=== PATIENT | male | born 1960 | race Caucasian/White ===

== ENCOUNTER 2018-12-03 08:50 | Emergency (ER) | payer OTHER ==
[~2018-12-03] VITALS: Ht 182.9 cm; Wt 113.4 kg
[2018-12-03] MEDS ORDERED: LISINOPRIL (10:14)
[2018-12-03 10:17] LABS: BILIRUBIN,URINE NEGATIVE (NEGATIVE); CLARITY,URINE CLEAR; COLOR,URINE YELLOW; GLUCOSE, URINE (UA) NEGATIVE (NEGATIVE); KETONES,URINE NEGATIVE (NEGATIVE); LEUKOCYTE ESTERASE ,URINE 1+ (NEGATIVE); NITRITE,URINE NEGATIVE (NEGATIVE); PH,URINE 5 (5-9); PROTEIN,URINE 2+ (NEGATIVE); UROBILINOGEN,URINE NORMAL (NORMAL)
--- NOTE | 2018-12-03 10:20 | NUR ---
NOTIFIED OF BUSY ER WITH POSSIBLE LONG WAIT.
[2018-12-03 10:39] LABS: BACTERIA,URINE LARGE /HPF; RBC,URINE TNTC /HPF; WBC,URINE 0-2 /HPF
[2018-12-03 10:40] LABS: YEAST,URINE LARGE /HPF
--- NOTE | 2018-12-03 10:41 | NUR ---
PT NOTIFIED THAT ARE 2ND PROVIDER IS HERE AND IT SHOULD NOT BE TOO MUCH LONGER.
[2018-12-03] MEDS ORDERED: KETOROLAC 30 MG/ML VIAL IVP ONE (11:00)
[2018-12-03] MEDS ORDERED: NS IV 1000 ML 1,000 ML IV SCH (11:00)
[2018-12-03] MEDS ORDERED: fentaNYL INJECTION 100 MCG/2 ML AMP IVP ONE (11:00)
--- NOTE | 2018-12-03 11:01 | ED Back Pain ---
General Chief Complaint: Back Problems Stated Complaint: LOWER BACK PAIN Nursing Triage Note: ARRIVED VIA AMB TO ROOM 10. COMPLAINS OF RIGHT LOWER BACK PAIN THAT WOKE HIM UP LAST NIGHT. HAS NOT TAKING ANYTHING FOR THE PAIN. Nursing Sepsis Screen: No Definite Risk Source of Information: Patient Exam Limitations: No Limitations History of Present Illness Date Seen by Provider: Dec 03, 2018 Time Seen by Provider: 10:40 Initial Comments 58-year-old male who presents to the emergency room with complaints of right lower back pain that woke him up last night. He reports that the pain radiates to his right groin and right testicle but denies testicle tenderness or swelling. He also has nausea but denies vomiting. Denies history of kidney stone. He does have right CVA tenderness. Denies using any [id number] medication for pain. Denies any injury to his back. Location: Other (right lower back pain) Timing/Duration: 4-6 Hours Associated Symptoms: No numbness in legs/feet; lower back pain (right-sided); No loss of bladder control, No loss of bowel control Allergies and Home Medications Allergies Coded Allergies: No Known Drug Allergies (Unverified , 12/03/18) Patient Home Medication List Home Medication List Reviewed: Yes Review of Systems Constitutional: no symptoms reported, see HPI Gastrointestinal: see HPI, nausea Genitourinary: see HPI, pain (right groin and right testicle pain and pressure. ) Musculoskeletal: see HPI, back pain All Other Systems Reviewed Negative Unless Noted: Yes Past Anrwbun-Xdqtey-Dpeuon Hx Past Med/Social Hx: Reviewed Nursing Past Med/Soc Hx Patient Social History Recent Foreign Travel: No Contact w/Someone Who Travel: No Recent Infectious Disease Expo: No Recent Hopitalizations: No Seasonal Allergies Seasonal Allergies: No Past Medical History Surgeries: Yes CABG Respiratory: No Cardiac: Yes Heart Attack, Hypertension Neurological: No Genitourinary: No Gastrointestinal: No Musculoskeletal: No Endocrine: Yes Diabetes, Non-Insulin dep Cancer: No Psychosocial: No Integumentary: No Family Medical History Reviewed Nursing Family Hx Physical Exam Vital Signs Vital Signs - First Documented 12/03/18 10:00 Temp 99.0 Pulse 61 Resp 16 B/P (MAP) 148/89 (108) Pulse Ox 100 O2 Delivery Room Air Capillary Refill : Less Than 3 Seconds Height, Weight, BMI Height: 6'" Weight: 250lbs. oz. 113.217323hr; BMI Method:Stated Progress/Results/Core Measures Results/Orders Lab Results Laboratory Tests Test 12/03/18 10:10 12/03/18 10:55 Range/Units Urine Color YELLOW Urine Clarity CLEAR Urine pH 5 5-9 Urine Specific Garita 1.020 1.016-1.022 Urine Protein 2+ H NEGATIVE Urine Glucose (UA) NEGATIVE NEGATIVE Urine Ketones NEGATIVE NEGATIVE Urine Nitrite NEGATIVE NEGATIVE Urine Bilirubin NEGATIVE NEGATIVE Urine Urobilinogen NORMAL NORMAL MG/DL Urine Leukocyte Esterase 1+ H NEGATIVE Urine RBC (Auto) 5+ H NEGATIVE Urine RBC TNTC H /HPF Urine WBC 0-2 /HPF Urine Crystals NONE /LPF Urine Bacteria LARGE H /HPF Urine Casts NONE /LPF Urine Mucus LARGE H /LPF Urine Yeast LARGE H /HPF Urine Culture Indicated YES White Blood Count 16.5 H 4.3-11.0 10^3/uL Red Blood Count 5.46 4.35-5.85 10^6/uL Hemoglobin 16.4 13.3-17.7 G/DL Hematocrit 47 40-54 % Mean Corpuscular Volume 86 80-99 FL Mean Corpuscular Hemoglobin 30 25-34 PG Mean Corpuscular Hemoglobin Concent 35 32-36 G/DL Red Cell Distribution Width 13.6 10.0-14.5 % Platelet Count 251 130-400 10^3/uL Mean Platelet Volume 10.0 7.4-10.4 FL Neutrophils (%) (Auto) 90 H 42-75 % Lymphocytes (%) (Auto) 5 L 12-44 % Monocytes (%) (Auto) 5 0-12 % Eosinophils (%) (Auto) 0 0-10 % Basophils (%) (Auto) 0 0-10 % Neutrophils # (Auto) 14.8 H 1.8-7.8 X 10^3 Lymphocytes # (Auto) 0.9 L 1.0-4.0 X 10^3 Monocytes # (Auto) 0.8 0.0-1.0 X 10^3 Eosinophils # (Auto) 0.0 0.0-0.3 10^3/uL Basophils # (Auto) 0.0 0.0-0.1 10^3/uL Neutrophils % (Manual) 93 % Lymphocytes % (Manual) 3 % Monocytes % (Manual) 3 % Band Neutrophils 1 % Hypersegmented Neutrophils SLIGHT Blood Morphology Comment NORMAL Sodium Level 139 135-145 MMOL/L Potassium Level 4.6 3.6-5.0 MMOL/L Chloride Level 107 98-107 MMOL/L Carbon Dioxide Level 23 21-32 MMOL/L Anion Gap 9 5-14 MMOL/L Blood Urea Nitrogen 15 7-18 MG/DL Creatinine 1.01 0.60-1.30 MG/DL Estimat Glomerular Filtration Rate > 60 BUN/Creatinine Ratio 15 Glucose Level 141 H 70-105 MG/DL Calcium Level 10.0 8.5-10.1 MG/DL Corrected Calcium 8.5-10.1 MG/DL Total Bilirubin 0.6 0.1-1.0 MG/DL Aspartate Amino Transf (AST/SGOT) 19 5-34 U/L Alanine Aminotransferase (ALT/SGPT) 28 0-55 U/L Alkaline Phosphatase 68 40-136 U/L Total Protein 7.8 6.4-8.2 GM/DL Albumin 4.6 H 3.2-4.5 GM/DL Amylase Level 42 25-125 U/L Lipase 21 8-78 U/L My Orders Orders - ALVINO DAMON Comprehensive Metabolic Panel (12/03/18 10:47) Lipase (12/03/18 10:47) Amylase (12/03/18 10:47) Saline Lock/Iv-Start (12/03/18 10:47) Cbc With Automated Diff (12/03/18 10:47) Ct Abd/Pelvis Wo(Kidney Stone) (12/03/18 10:47) Abdomen/Kub 1view (12/03/18 10:47) Ketorolac Injection (Toradol Injection) (12/03/18 11:00) Fentanyl Injection (Sublimaze Injection (12/03/18 11:00) Ns Iv 1000 Ml (Sodium Chloride 0.9%) (12/03/18 11:00) Manual Differential (12/03/18 10:55) Ondansetron Injection (Zofran Injectio (12/03/18 12:15) Medications Given in ED Current Medications Medications Dose Ordered Sig/Oniel Route Start Time Stop Time Status Last Admin Dose Admin Fentanyl Citrate 50 mcg ONCE ONCE IVP 12/03/18 11:00 12/03/18 11:01 DC 12/03/18 12:01 50 MCG Ketorolac Tromethamine 30 mg ONCE ONCE IVP 12/03/18 11:00 12/03/18 11:01 DC 12/03/18 12:02 30 MG Ondansetron HCl 4 mg ONCE ONCE IVP 12/03/18 12:15 12/03/18 12:16 DC 12/03/18 12:08 4 MG Vital Signs/I&O 12/03/18 10:00 Temp 99.0 Pulse 61 Resp 16 B/P (MAP) 148/89 (108) Pulse Ox 100 O2 Delivery Room Air Blood Pressure Mean: 108 Departure Impression Primary Impression: Kidney stone Disposition: HOME, SELF-CARE Condition: Stable/Unchanged Departure-Patient Inst. Decision time for Depature: 12:20 Referrals: STEPHANY BROWN MD Patient Instructions: Kidney Stones (DC) Add. Discharge Instructions: Take medications as directed. Follow-up with Dr. Brown for reevaluation and further treatment of your kidney stones. Call first thing Tuesday morning for an appointment time. Strain all of your urine and if you should pass the stone take it with you to your appointment. All discharge instructions reviewed with patient and/or family. Voiced understanding. Scripts Hydrocodone Bit/Acetaminophen (Hydrocodone/Acetaminophen 5/325mg Tablet) 1 Tab Tab 1-2 EACH PO Q6H PRN for PAIN-MODERATE MDD 10, #20 TAB Prov: ALVINO DAMON 12/03/18 Ondansetron HCl (Zofran) 4 Mg Tab 4 MG PO Q4H, #14 TAB Prov: ALVINO DAMON 12/03/18 Sulfamethoxazole/Trimethoprim (Bactrim Ds Tablet) 1 Each Tablet 1 EACH PO BID for 7 Days, #14 TAB Prov: ALVINO DAMON 12/03/18 ALVINO DAMON Dec 03, 2018 11:01
[2018-12-03 11:02] LABS: BASOPHILS % (AUTO) 0 % (0-10); EOSINOPHILS % (AUTO) 0 % (0-10); HEMATOCRIT 47 % (40-54); HEMOGLOBIN 16.4 G/DL (13.3-17.7); LYMPHOCYTES # (AUTO) 0.9 X 10^3 (1.0-4.0); LYMPHOCYTES % (AUTO) 5 % (12-44); MEAN CORPUSCULAR HEMOGLOBIN 30 PG (25-34); MEAN CORPUSCULAR HGB CONC 35 G/DL (32-36); MEAN CORPUSCULAR VOLUME 86 FL (80-99); MONOCYTES # (AUTO) 0.8 X 10^3 (0.0-1.0); MONOCYTES % (AUTO) 5 % (0-12); NEUTROPHILS # (AUTO) 14.8 X 10^3 (1.8-7.8); NEUTROPHILS % (AUTO) 90 % (42-75); PLATELET COUNT 251 10^3/uL (130-400); RED CELL DISTRIBUTION WIDTH 13.6 % (10.0-14.5); WHITE BLOOD COUNT 16.5 10^3/uL (4.3-11.0)
--- NOTE | 2018-12-03 11:17 | Diagnostic Imaging Report ---
PROCEDURE: CT urinary tract, rule out kidney stone. TECHNIQUE: Multiple contiguous axial images were obtained through the abdomen and pelvis without the use of intravenous contrast. INDICATION: Right flank pain for 6 hours. FINDINGS: The liver, gallbladder and bile ducts are normal. The spleen, pancreas and adrenals are normal. There are multiple bilateral 2-4 mm nonobstructing stones in the kidneys. There is a 3 mm calculus in the right mid ureter at the L4 level. There is mild pelvocaliectasis present on the right with perinephric stranding on the right. The distal right ureter is normal. The left ureter is normal. The bladder is normal. There is diverticulosis of the colon with no evidence of diverticulitis or other acute bowel abnormality. There is no free intraperitoneal air or fluid. There is no acute bony abnormality. IMPRESSION: There is a 3 mm calculus in the right mid ureter causing mild dilatation of the collecting system proximal to this. There are multiple bilateral nonobstructing stones present in the kidneys. There is diverticulosis of the colon. Dictated by: Dictated on workstation # [id number]
--- NOTE | 2018-12-03 11:21 | Diagnostic Imaging Report ---
INDICATION: Right flank pain for 6 hours FINDINGS: Supine views of the abdomen show a normal bowel gas pattern. There are bilateral renal calcifications present. No ureteral calcifications are evident on these views. The spine shows mild degenerative changes with no acute bony abnormality. IMPRESSION: There are bilateral renal calculi present. No acute abnormality is evident. Dictated by: Dictated on workstation # [id number]
[2018-12-03 11:22] LABS: ALANINE AMINOTRANSFERASE 28 U/L (0-55); ALBUMIN 4.6 GM/DL (3.2-4.5); ALKALINE PHOSPHATASE 68 U/L (40-136); AMYLASE 42 U/L (25-125); BILIRUBIN,TOTAL 0.6 MG/DL (0.1-1.0); BUN/CREATININE RATIO 15; CARBON DIOXIDE 23 MMOL/L (21-32); CHLORIDE 107 MMOL/L (98-107); CREATININE SERUM 1.01 MG/DL (0.60-1.30); GFR ESTIMATED > 60; GLUCOSE 141 MG/DL (70-105); LIPASE 21 U/L (8-78); POTASSIUM 4.6 MMOL/L (3.6-5.0); SODIUM 139 MMOL/L (135-145); TOTAL PROTEIN 7.8 GM/DL (6.4-8.2)
[2018-12-03 11:33] LABS: BAND NEUTROPHILS 1 %; HYPERSEGMENTED NEUT SLIGHT; LYMPHOCYTES % (MANUAL) 3 %; MONOCYTES % (MANUAL) 3 %; NEUTROPHILS % (MANUAL) 93 %
[2018-12-03 11:34] LABS: RBC MORPH NORMAL
--- NOTE | 2018-12-03 12:04 | NUR ---
NS BOLUS STARTED AT 1204 PER DOCTOR ORDER
[2018-12-03] MEDS ORDERED: ONDANSETRON 4 MG/2 ML (SDV) Z0FRAN IVP ONE (12:15)
[2018-12-03] MEDS ORDERED: ACHD5005 PO (12:24)
[2018-12-03] MEDS ORDERED: ONDN4T PO (12:24)
[2018-12-03] MEDS ORDERED: SULF1TAB35 PO (12:24)
--- NOTE | 2018-12-03 12:38 | NUR ---
D/C IV FLUIDS PER PROVIDER FOR DISCHARGE 500 ML INFUSED
[2018-12-03 12:39] VITALS: BP 132/74
== END 2018-12-03 12:39 | disposition home or self-care (01) ==
LOC: ER 08:53
DX: N20.0 Calculus of kidney (principal); I10 Essential (primary) hypertension; I25.2 Old myocardial infarction; E11.9 Type 2 diabetes mellitus without complications
CPT/HCPCS: 36415; 74018; 74176; 80053; 81000; 82150; 83690; 85007; 85027; 87088

== ENCOUNTER 2020-09-20 11:21 | Inpatient (IN) | payer OTHER ==
[~2020-09-20] VITALS: Ht 175 cm; Wt 118.2 kg
[~2020-09-20 11:21] MED LIST: ACHD5005 PO; LISINOPRIL; ONDN4T PO; SULF1TAB35 PO
--- NOTE | 2020-09-20 11:59 | ED Respiratory ---
General Chief Complaint: Respiratory Problems Stated Complaint: SOA;COUGH History of Present Illness Date Seen by Provider: Sep 20, 2020 Time Seen by Provider: 11:58 60-year-old male with a past medical history significant for hypertension, borderline diabetes presenting to the emergency department with a complaint of fever, fatigue, shortness of breath, cough. Patient has been at home living with a known positive COVID-19 patient. He states he has had 3 days of progressively worsening symptoms with difficulty breathing, and fatigue. He has noted a nonproductive cough. Shortness of breath is worsened with exertion. It does not worsen with lying flat.. He denies chest pain. He has had temperatures of 102 that have been responsive to Tylenol. He does not normally wear oxygen at baseline was found to have a new 3 L oxygen requirement. Patient denies alcohol use. He normally gets his care at the [facility]. He also noted new onset of lower extremity edema which is new for him. Allergies and Home Medications Allergies Coded Allergies: No Known Drug Allergies (Unverified , 12/03/18) Home Medications Hydrocodone Bit/Acetaminophen 1 Tab Tab, 1-2 EACH PO Q6H PRN for PAIN-MODERATE Prescribed by: ALVINO DAMON on 12/03/18 1224 Ondansetron HCl 4 Mg Tab, 4 MG PO Q4H Prescribed by: ALVINO DAMON on 12/03/18 1224 Sulfamethoxazole/Trimethoprim 1 Each Tablet, 1 EACH PO BID Prescribed by: ALVINO DAMON on 12/03/18 1224 Patient Home Medication List Home Medication List Reviewed: Yes Review of Systems Review of Systems Constitutional: no symptoms reported, see HPI, chills, diaphoresis, dizziness, fever, malaise, weakness, weight gain, weight loss, other EENTM: see HPI Respiratory: cough, dyspnea on exertion Cardiovascular: edema Genitourinary: see HPI Musculoskeletal: see HPI Skin: see HPI Psychiatric/Neurological: See HPI Hematologic/Lymphatic: See HPI All Other Systems Reviewed Negative Unless Noted: Yes Past Foubmzi-Tvyqan-Hrvtip Hx Patient Social History Recent Hopitalizations: No Seasonal Allergies Seasonal Allergies: No Past Medical History Surgeries: Yes CABG Respiratory: No Cardiac: Yes Heart Attack, Hypertension Neurological: No Genitourinary: No Gastrointestinal: No Musculoskeletal: No Endocrine: Yes Diabetes, Non-Insulin dep Cancer: No Psychosocial: No Integumentary: No Physical Exam Vital Signs - First Documented 09/20/20 09/20/20 11:35 12:23 Temp 36.4 Pulse 81 Resp 28 B/P (MAP) 113/66 (82) Pulse Ox 94 O2 Delivery Nasal Cannula O2 Flow Rate 2.00 Capillary Refill : Height: 6'" Weight: 250lbs. oz. 113.829443bv; BMI Method:Stated General Appearance: mild distress, moderate distress Neck: supple Respiratory: respiratory distress, crackles, other (Patient was tachypneic and had a new 3 L oxygen requirement via nasal cannula.) Cardiovascular: tachycardia, other (Bilateral pitting lower extremity edema. Regular rhythm.) Gastrointestinal: non tender, soft, no organomegaly Extremities: normal inspection Neurologic/Psychiatric: alert, normal mood/affect Skin: normal color, warm/dry Focused Exam Sepsis Stage: Sepsis Possible Source: Pulmonary Lactate Level 09/20/20 12:05: Lactic Acid Level 2.40*H 09/20/20 14:10: Lactic Acid Level 2.43*H Time of Focused Exam: 13:05 Respiratory: Crackles Cardiovascular: Regular Rate, Rhythm Skin: normal color Lactic Acid Level Laboratory Tests Test 09/20/20 12:05 09/20/20 14:10 Lactic Acid Level 2.40 MMOL/L (0.50-2.00) *H 2.43 MMOL/L (0.50-2.00) *H Within 3hrs of presentation: Admin fluids, Admin ABX, Blood cultures prior to ABX's, Lactate level Progress/Results/Core Measures Suspected Sepsis SIRS Temperature: Pulse: Respiratory Rate: Laboratory Tests 09/20/20 12:05: White Blood Count 20.3H Blood Pressure / Mean: 09/20/20 12:05: Lactic Acid Level 2.40*H 09/20/20 14:10: Lactic Acid Level 2.43*H Laboratory Tests 09/20/20 12:05: Creatinine 1.01, INR Comment 1.1, Platelet Count 461H, Total Bilirubin 0.4 Results/Orders Lab Results Laboratory Tests Test 09/20/20 12:05 09/20/20 12:15 09/20/20 14:10 Range/Units White Blood Count 20.3 H 4.3-11.0 10^3/uL Red Blood Count 4.64 4.35-5.85 10^6/uL Hemoglobin 13.3 13.3-17.7 G/DL Hematocrit 42 40-54 % Mean Corpuscular Volume 90 80-99 FL Mean Corpuscular Hemoglobin 29 25-34 PG Mean Corpuscular Hemoglobin Concent 32 32-36 G/DL Red Cell Distribution Width 14.6 H 10.0-14.5 % Platelet Count 461 H 130-400 10^3/uL Mean Platelet Volume 9.7 7.4-10.4 FL Immature Granulocyte % (Auto) 4 % Neutrophils (%) (Auto) 83 H 42-75 % Lymphocytes (%) (Auto) 6 L 12-44 % Monocytes (%) (Auto) 7 0-12 % Eosinophils (%) (Auto) 0 0-10 % Basophils (%) (Auto) 0 0-10 % Neutrophils # (Auto) 16.9 H 1.8-7.8 X 10^3 Lymphocytes # (Auto) 1.2 1.0-4.0 X 10^3 Monocytes # (Auto) 1.3 H 0.0-1.0 X 10^3 Eosinophils # (Auto) 0.0 0.0-0.3 10^3/uL Basophils # (Auto) 0.1 0.0-0.1 10^3/uL Immature Granulocyte # (Auto) 0.8 H 0.0-0.1 10^3/uL Neutrophils % (Manual) 73 % Lymphocytes % (Manual) 8 % Monocytes % (Manual) 10 % Eosinophils % (Manual) 0 % Basophils % (Manual) 0 % Metamyelocytes % 3 % Band Neutrophils 6 % Nucleated Red Blood Cells 1 Polychromasia MODERATE Prothrombin Time 14.4 12.2-14.7 SEC INR Comment 1.1 0.8-1.4 Activated Partial Thromboplast Time 26 24-35 SEC Sodium Level 132 L 135-145 MMOL/L Potassium Level 3.8 3.6-5.0 MMOL/L Chloride Level 91 L 98-107 MMOL/L Carbon Dioxide Level 28 21-32 MMOL/L Anion Gap 13 5-14 MMOL/L Blood Urea Nitrogen 22 H 7-18 MG/DL Creatinine 1.01 0.60-1.30 MG/DL Estimat Glomerular Filtration Rate > 60 BUN/Creatinine Ratio 22 Glucose Level 147 H 70-105 MG/DL Lactic Acid Level 2.40 *H 2.43 *H 0.50-2.00 MMOL/L Calcium Level 8.7 8.5-10.1 MG/DL Corrected Calcium 9.5 8.5-10.1 MG/DL Total Bilirubin 0.4 0.1-1.0 MG/DL Aspartate Amino Transf (AST/SGOT) 88 H 5-34 U/L Alanine Aminotransferase (ALT/SGPT) 134 H 0-55 U/L Alkaline Phosphatase 93 40-136 U/L Troponin I < 0.30 <0.30 NG/ML Pro-B-Type Natriuretic Peptide 6606.0 H <75.0 PG/ML Total Protein 7.3 6.4-8.2 GM/DL Albumin 3.0 L 3.2-4.5 GM/DL My Orders Orders - MARTHA BOYLE MD Cbc With Automated Diff (09/20/20 11:59) Comprehensive Metabolic Panel (09/20/20 11:59) Blood Culture (09/20/20 11:59) Urinalysis (09/20/20 11:59) Urine Culture (09/20/20 11:59) Protime With Inr (09/20/20 11:59) Partial Thromboplastin Time (09/20/20 11:59) Chest 1 View Ap/Pa Only (09/20/20 11:59) Ed Iv/Invasive Line Start (09/20/20 11:59) Ed Iv/Invasive Line Start (09/20/20 11:59) Vital Signs Adult Sepsis Patie Q15M (09/20/20 11:59) O2 (09/20/20 11:59) Remove Rings In Anticipation O (09/20/20 11:59) Lactic Acid Analyzer (09/20/20 11:59) Ns Iv 1000 Ml (Sodium Chloride 0.9%) (09/20/20 12:00) Vital Signs: Every 4 Hours (Or (09/20/20 11:59) Monitor-Rhythm Ecg Trace Only (09/20/20 11:59) Oxygen Delivery Set Up (09/20/20 11:59) Oxygen-Administer ,19 (09/20/20 11:59) Coronavirus Sars-Cov-2 So 2019 (09/20/20 11:59) Probnp Fs (09/20/20 11:59) Manual Differential (09/20/20 12:05) Ceftriaxone For Iv Use (Rocephin For I (09/20/20 13:00) Azithromycin Injection (Zithromax Inject (09/20/20 13:00) Troponin I Fs (09/20/20 12:57) Ekg Tracing (09/20/20 13:07) Medications Given in ED Current Medications Medications Dose Ordered Sig/Oniel Route Start Time Stop Time Status Last Admin Dose Admin Azithromycin 500 mg/Sodium Chloride 250 ml @ 250 mls/hr ONCE ONCE IV 09/20/20 13:00 09/20/20 13:59 DC 09/20/20 13:26 250 MLS/HR Ceftriaxone Sodium 1000 mg/ Sterile Water 10 ml @ 200 mls/hr ONCE ONCE IV 09/20/20 13:00 09/20/20 13:02 DC 09/20/20 13:25 200 MLS/HR Vital Signs/I&O 09/20/20 09/20/20 09/20/20 09/20/20 11:35 12:23 13:57 14:17 Temp 36.4 36.5 36.2 Pulse 81 100 94 Resp 28 18 16 B/P (MAP) 113/66 (82) 122/68 124/62 Pulse Ox 94 88 94 95 O2 Delivery Nasal Cannula Room Air Nasal Cannula Nasal Cannula O2 Flow Rate 2.00 2.00 2.00 Capillary Refill : Progress Note : Progress Note Patient's presentation is concerning for suspected COVID-19 infection given his close contact with a known positive. He had a new 3 L oxygen requirement and was slightly tachycardic in the low 100s upon arrival to the emergency department. His initial lactic acid was elevated at 2.4 and trended up to 2.43 after 1 L NS. He was also tachypneic. Blood cultures x2 were obtained. Chest x-ray revealed diffuse infiltrates. The patient was started on Rocephin and azithromycin. He did have lower extremity edema found on exam along with an elevated proBNP. No previous history of congestive heart failure, but patient only was to receive 1 L of normal saline with concerns for fluid overload in the setting of COVID-19 and possible underlying congestive heart failure despite clinical concern for sepsis. Remainder of his laboratory work revealed slightly elevated liver enzymes, normal troponin. Patient was agreeable with being admitted to [facility] in [facility] for further management of his respiratory failure with hypoxia likely secondary to suspected COVID-19 infection with possible underlying congestive heart failure.. I spoke with the on-call hospitalist Dr. Ladd who accepted the patient for further management. Patient remained stable in the emergency department on 3 L of oxygen while awaiting for transportation for inpatient admission. ECG Initial ECG Impression Date: Sep 20, 2020 Initial ECG Impression Time: 13:44 Comment EKG obtained on 09/20/2020 at 1317 significant for sinus rhythm rate of 97, CT interval of 143, normal axis, QTC of 531, no STEMI. Diagnostic Imaging Diagonstic Imaging: Xray Comments Date of Exam:09/20/20 CHEST 1 VIEW AP/PA ONLY INDICATION: Short of breath for two days. Sepsis. Portable chest shows cardiomegaly with mild vascular congestion. There are bilateral infiltrates consistent with pneumonia. There is no effusion or pneumothorax. There are changes of prior CABG. There is no acute bony abnormality. IMPRESSION: There is cardiomegaly. There are bilateral infiltrates. Recommend follow-up. Departure Communication (Admissions) Time/Spoke to Admitting Phy: 13:10 Julee Escobar accepted the patient for further management. Med/Surg Tely inpatient. Impression Primary Impression: Respiratory failure with hypoxia Qualified Codes: J96.01 - Acute respiratory failure with hypoxia Additional Impressions: Suspected COVID-19 virus infection Pneumonia Qualified Codes: J18.9 - Pneumonia, unspecified organism Sepsis Qualified Codes: A41.9 - Sepsis, unspecified organism; R65.20 - Severe sepsis without septic shock; J96.01 - Acute respiratory failure with hypoxia Fatigue Qualified Codes: R53.83 - Other fatigue Elevated liver enzymes Disposition: ADMITTED INPATIENT Condition: Stable Admissions Decision to Admit Reason: Admit from ER (General) Decision to Admit/Date: Sep 20, 2020 Time/Decision to Admit Time: 13:10 Departure-Patient Inst. Referrals: NO,LOCAL PHYSICIAN (PCP/Family) Primary Care Physician MARTHA BOYLE MD Sep 20, 2020 11:59
[2020-09-20] MEDS ORDERED: NS IV 1000 ML 1,000 ML IV SCH (12:00)
[2020-09-20 12:20] LABS: HEMATOCRIT 42 % (40-54); HEMOGLOBIN 13.3 G/DL (13.3-17.7); MEAN CORPUSCULAR HEMOGLOBIN 29 PG (25-34); MEAN CORPUSCULAR HGB CONC 32 G/DL (32-36); MEAN CORPUSCULAR VOLUME 90 FL (80-99); WHITE BLOOD COUNT 20.3 10^3/uL (4.3-11.0)
[2020-09-20 12:21] LABS: BASOPHILS # (AUTO) 0.1 10^3/uL (0.0-0.1); BASOPHILS % (AUTO) 0 % (0-10); EOSINOPHILS % (AUTO) 0 % (0-10); LYMPHOCYTES # (AUTO) 1.2 X 10^3 (1.0-4.0); LYMPHOCYTES % (AUTO) 6 % (12-44); MEAN PLATELET VOLUME 9.7 FL (7.4-10.4); MONOCYTES # (AUTO) 1.3 X 10^3 (0.0-1.0); MONOCYTES % (AUTO) 7 % (0-12); NEUTROPHILS # (AUTO) 16.9 X 10^3 (1.8-7.8); NEUTROPHILS % (AUTO) 83 % (42-75); PLATELET COUNT 461 10^3/uL (130-400)
[2020-09-20 12:31] LABS: INR 1.1 (0.8-1.4); PROTHROMBIN TIME PATIENT 14.4 SEC (12.2-14.7)
[2020-09-20 12:41] LABS: ALANINE AMINOTRANSFERASE 134 U/L (0-55); ALKALINE PHOSPHATASE 93 U/L (40-136); BILIRUBIN,TOTAL 0.4 MG/DL (0.1-1.0); BUN/CREATININE RATIO 22; CALCIUM 8.7 MG/DL (8.5-10.1); CARBON DIOXIDE 28 MMOL/L (21-32); CHLORIDE 91 MMOL/L (98-107); CREATININE SERUM 1.01 MG/DL (0.60-1.30); GFR ESTIMATED > 60; GLUCOSE 147 MG/DL (70-105); POTASSIUM 3.8 MMOL/L (3.6-5.0); SODIUM 132 MMOL/L (135-145); TOTAL PROTEIN 7.3 GM/DL (6.4-8.2)
--- NOTE | 2020-09-20 12:41 | Diagnostic Imaging Report ---
INDICATION: Short of breath for two days. Sepsis. Portable chest shows cardiomegaly with mild vascular congestion. There are bilateral infiltrates consistent with pneumonia. There is no effusion or pneumothorax. There are changes of prior CABG. There is no acute bony abnormality. IMPRESSION: There is cardiomegaly. There are bilateral infiltrates. Recommend follow-up. Dictated by: Dictated on workstation # [id number]
[2020-09-20] MEDS ORDERED: cefTRIAXone FOR IV USE 1,000 MG in WATER (STERILE) FOR INJECTION 10 ML IV ONE (13:00)
[2020-09-20] MEDS ORDERED: AZITHROMYCIN INJECTION 500 MG in NS (IVPB) 250 ML IV ONE (13:00)
[2020-09-20 13:11] LABS: BAND NEUTROPHILS 6 %; BASOPHILS % (MANUAL) 0 %; EOSINOPHILS % (MANUAL) 0 %; LYMPHOCYTES % (MANUAL) 8 %; METAMYELOCYTES % 3 %; MONOCYTES % (MANUAL) 10 %; NEUTROPHILS % (MANUAL) 73 %; NUCLEATED RED BLOOD CELLS 1; POLYCHROMASIA MODERATE
[2020-09-20 15:16] VITALS: BP 120/71
[2020-09-20] MEDS ORDERED: FUROSEMIDE 40 MG/4 ML INJ (LASIX) IVP ONE (15:45)
[2020-09-20] MEDS ORDERED: ONDANSETRON 4 MG/2 ML (SDV) Z0FRAN IV PRN (15:45)
[2020-09-20] MEDS ORDERED: guaiFENesin SYRUP 100 MG/5 ML 10 ML (ROBITUSSIN SF) PO PRN (15:45)
--- NOTE | 2020-09-20 15:53 | History & Physical-Hospitalist ---
History of Present Illness HPI/Chief Complaint Pt is a 60yoCM with a PMH of HTN and NIDDMII who presented to the ER due to shortness of breath. His girlfriend has COVID and they both developed symptoms about 1 week ago. He never got tested but assumed he had it as well. Over the past two or three days it had been worsening and he states when he arrived at the ER it was like he had "been bucking broncos." He states he's feeling better now than when he arrived to the ER. Despite this he was satting around 88% on 10lpm while I was at bedside. I instructed him to roll to his belly and prone while we get vapotherm. Sats improved to 92%. He denies any loss of taste or smell, nausea, vomiting, or diarrhea. He has had fevers up to 102. Source: patient Date Seen 09/20/20 Time Seen by a Provider: 15:47 Attending Physician Ina Jara MD PCP No,Local Physician Referring Physician Date of Admission Sep 20, 2020 at 15:00 Home Medications & Allergies Home Medications Reviewed patient Home Medication Reconciliation performed by pharmacy medication reconciliations document image technician and/or nursing. Patients Allergies have been reviewed. Allergies Allergies Coded Allergies No Known Drug Allergies (Unverified12/03/18) Past Sofqwme-Zbsygk-Owwdnu Hx Past Med/Social Hx: Reviewed Nursing Past Med/Soc Hx Patient Social History Alcohol Use: Denies Use Recreational Drug Use: No Smoking Status: Never a Smoker 2nd Hand Smoke Exposure: No Physical Abuse Screen: No Sexual Abuse: No Recent Foreign Travel: No Contact w/other who traveled: No Recent Hopitalizations: No Recent Infectious Disease Expo: No Seasonal Allergies Seasonal Allergies: No Past Medical History Surgeries: CABG Cardiac: Heart Attack, Hypertension Endocrine: Diabetes, Non-Insulin dep Family History Reviewed Nursing Family Hx Review of Systems Constitutional: fever, malaise, weakness EENTM: no symptoms reported Respiratory: cough, short of breath Cardiovascular: no symptoms reported Gastrointestinal: No abdominal pain, No constipation, No diarrhea, No nausea, No vomiting Genitourinary: no symptoms reported Musculoskeletal: no symptoms reported Skin: no symptoms reported Psychiatric/Neurological: No Symptoms Reported Physical Exam Physical Exam Vital Signs Vital Signs - First Documented 09/20/20 09/20/20 09/20/20 11:35 12:23 16:27 Temp 36.4 Pulse 81 Resp 28 B/P (MAP) 113/66 (82) Pulse Ox 94 O2 Delivery Nasal Cannula O2 Flow Rate 2.00 FiO2 70 Capillary Refill : Less Than 3 Seconds Height, Weight, BMI Height: 6'" Weight: 250lbs. oz. 113.373845qz; 40.81 BMI Method:Stated General Appearance: No Apparent Distress, WD/WN, Obese HEENT: PERRL/EOMI, Moist Mucous Membranes Neck: Normal Inspection, Supple Respiratory: Lungs Clear, No Accessory Muscle Use; No Rhonci, No Wheezing; Other (on 15lpm) Cardiovascular: Regular Rate, Rhythm, No Murmur Gastrointestinal: Normal Bowel Sounds, Non Tender, Soft Extremity: Normal Capillary Refill, No Calf Tenderness, Pedal Edema, Swelling (non pitting edema to calves) Neurologic/Psychiatric: Alert, Oriented x3, Normal Mood/Affect Skin: Normal Color, Warm/Dry Results Results/Procedures Labs Laboratory Tests 09/20/20 12:05 09/21/20 06:30 Patient resulted labs reviewed. Imaging: Reviewed Imaging Report Imaging [facility], [place] NAME: TONA KING Jean-Paul [facility] REC#: [id number] PT STATUS: REG ER : 1960 PHYSICIAN: MARTHA BOYLE MD ADMIT DATE: 09/20/20/ER FS Signed Date of Exam:09/20/20 CHEST 1 VIEW AP/PA ONLY INDICATION: Short of breath for two days. Sepsis. Portable chest shows cardiomegaly with mild vascular congestion. There are bilateral infiltrates consistent with pneumonia. There is no effusion or pneumothorax. There are changes of prior CABG. There is no acute bony abnormality. IMPRESSION: There is cardiomegaly. There are bilateral infiltrates. Recommend follow-up. Dictated by: Dictated on workstation # [id number] Dict: 09/20/20 1238 Trans: 09/20/20 1306 [facility] [id number] Interpreted by: KANNAN ARMIJO MD Electronically signed by: KANNAN ARMIJO MD 09/20/20 1306 Assessment/Plan Admission Diagnosis Acute hypoxic respiratory due COVID19 Admission Status: Inpatient Order (span 2 midnights) Reason for Inpatient Admission: see below Assessment and Plan Acute hypoxic respiratory due suspected COVID19 When I was at bedside he was requiring 15lpm HFNC to maintain sats at 91% I discussed with RT who will bring Vapotherm to bedside and switch him to that Start decadron and remdesivir Discussed EUA status of convalescent plasma with patient, he consents, ordered Lovenox IS MAT Has lower extremity edema and elevated BNP, will trial Lasix Lactic acidosis likely due to hypoxia, trend HTN BP 120/72 while I was at bedside Hold home meds for now Morbid obesity No acute needs but significant clinically DVT ppx: Lovenox Diagnosis/Problems Diagnosis/Problems (1) Essential (primary) hypertension Status: Chronic (2) Suspected COVID-19 virus infection Status: Acute (3) Respiratory failure with hypoxia Status: Acute Qualifiers: Chronicity: acute Qualified Codes: J96.01 - Acute respiratory failure with hypoxia (4) Elevated liver enzymes Status: Acute Clinical Quality Measures DVT/VTE Risk/Contraindication: Risk Factor Score Per Nursin RFS Level Per Nursing on Admit: 4+=Very High INA JARA MD Sep 20, 2020 15:53
[2020-09-20 16:00] VITALS: BP 120/71
[2020-09-20] MEDS ORDERED: REMDESIVIR INJ 200 MG in NS (IVPB) 210 ML IV ONE (16:00)
[2020-09-20] MEDS: ENOXAPARIN 40 MG/0.4 ML (LOVENOX) SYR SC SCH (17:56)
[2020-09-20 19:12] VITALS: BP 119/78
[2020-09-20 23:06] VITALS: BP 125/72
[2020-09-21 03:32] VITALS: BP 123/80
[2020-09-21 07:45] VITALS: BP 130/81
[2020-09-21 07:53] LABS: ALANINE AMINOTRANSFERASE 97 U/L (0-55); ALBUMIN 2.9 GM/DL (3.2-4.5); ALKALINE PHOSPHATASE 72 U/L (40-136); BILIRUBIN,TOTAL 0.5 MG/DL (0.1-1.0); BUN/CREATININE RATIO 21; CALCIUM 8.1 MG/DL (8.5-10.1); CARBON DIOXIDE 28 MMOL/L (21-32); CHLORIDE 99 MMOL/L (98-107); CREATININE SERUM 0.87 MG/DL (0.60-1.30); GFR ESTIMATED > 60; GLUCOSE 109 MG/DL (70-105); POTASSIUM 4.1 MMOL/L (3.6-5.0); SODIUM 140 MMOL/L (135-145); TOTAL PROTEIN 6.2 GM/DL (6.4-8.2)
[2020-09-21] MEDS: ENOXAPARIN 40 MG/0.4 ML (LOVENOX) SYR SC SCH ×2 (08:39→18:48)
[2020-09-21] MEDS: ACETAMINOPHEN 325 MG TABLET PO PRN ×2 (11:52→21:27)
[2020-09-21 12:00] VITALS: BP 140/112
--- NOTE | 2020-09-21 12:17 | Progress Note - Hospitalist ---
Subjective HPI/CC On Admission Date Seen by Provider: Sep 21, 2020 Time Seen by Provider: 10:30 Pt is a 60yoCM with a PMH of HTN and NIDDMII who presented to the ER due to shortness of breath. His girlfriend has COVID and they both developed symptoms about 1 week ago. He never got tested but assumed he had it as well. Over the past two or three days it had been worsening and he states when he arrived at the ER it was like he had "been bucking broncos." He states he's feeling better now than when he arrived to the ER. Despite this he was satting around 88% on 10lpm while I was at bedside. I instructed him to roll to his belly and prone while we get vapotherm. Sats improved to 92%. He denies any loss of taste or smell, nausea, vomiting, or diarrhea. He has had fevers up to 102. Subjective/Events-last exam Called by RN over hypoxia. Placed on BiPAP. Patient states that he feels much better today and even better with BiPAP. Discussed need to transfer to the ICU for closer monitoring. Focused Exam Lactate Level 09/20/20 12:05: Lactic Acid Level 2.40*H 09/20/20 14:10: Lactic Acid Level 2.43*H 09/20/20 17:00: Lactic Acid Level 1.62 Time of Focused Exam: 13:05 Objective Exam Vital Signs Vital Signs Date Time Temp Pulse Resp B/P (MAP) Pulse Ox O2 Delivery O2 Flow Rate FiO2 09/21/20 07:46 Vapotherm 30.00 65 09/21/20 07:45 35.8 87 19 130/81 (97) 90 Capillary Refill : Less Than 3 Seconds General Appearance: No Apparent Distress, Obese Respiratory: No Crackles; Decreased Breath Sounds; No Rhonci, No Wheezing; Other (on BiPAP) Cardiovascular: Regular Rate, Rhythm, No Murmur Gastrointestinal: Normal Bowel Sounds, Non Tender, Soft Neurologic/Psychiatric: Alert, Oriented x3 Results/Procedures Lab Laboratory Tests 09/21/20 06:30 Patient resulted labs reviewed. Imaging: Reviewed Imaging Report Assessment/Plan Assessment and Plan Assess & Plan/Chief Complaint Acute hypoxic respiratory due suspected COVID19 Doing better on BiPAP, transfer to ICU Continue decadron and remdesivir Awaiting convalescent plasma Lovenox IS MAT Lactic acidosis- resolved likely due to hypoxia HTN BP well controlled currently Hold home meds for now Morbid obesity No acute needs but significant clinically DVT ppx: Lovenox Diagnosis/Problems Diagnosis/Problems (1) Essential (primary) hypertension Status: Chronic (2) Suspected COVID-19 virus infection Status: Acute (3) Respiratory failure with hypoxia Status: Acute Qualifiers: Chronicity: acute Qualified Codes: J96.01 - Acute respiratory failure with hypoxia (4) Elevated liver enzymes Status: Acute Clinical Quality Measures DVT/VTE Risk/Contraindication: Risk Factor Score Per Nursin RFS Level Per Nursing on Admit: 4+=Very High INA JARA MD Sep 21, 2020 12:17
[2020-09-21 15:48] LABS: ALANINE AMINOTRANSFERASE 96 U/L (0-55); ALKALINE PHOSPHATASE 74 U/L (40-136); BILIRUBIN,TOTAL 0.5 MG/DL (0.1-1.0); BUN/CREATININE RATIO 19; CALCIUM 8.1 MG/DL (8.5-10.1); CARBON DIOXIDE 24 MMOL/L (21-32); CHLORIDE 101 MMOL/L (98-107); CREATININE SERUM 1.03 MG/DL (0.60-1.30); GFR ESTIMATED > 60; GLUCOSE 154 MG/DL (70-105); POTASSIUM 4.6 MMOL/L (3.6-5.0); SODIUM 137 MMOL/L (135-145); TOTAL PROTEIN 6.6 GM/DL (6.4-8.2)
[2020-09-21 17:00] VITALS: BP 131/83
[2020-09-21] MEDS: CEFEPIME INJECTION 1,000 MG in WATER (STERILE) FOR INJECTION 10 ML IV SCH ×2 (17:00→21:27)
[2020-09-21] MEDS: REMDESIVIR INJ 100 MG in NS (IVPB) 230 ML IV SCH (17:28)
[2020-09-21 23:32] VITALS: BP 135/79
[2020-09-22] VITALS (19 sets, daily range): BP systolic 125–180; BP diastolic 65–108
--- NOTE | 2020-09-22 03:21 | Pulmonary Consultation ---
CELE PARK,MED STUDENT 09/22/20 0321: History of Present Illness History of Present Illness Date Seen by Provider: Sep 22, 2020 Time Seen by Provider: 03:10 Date of Admission 09/20/20 History of Present Illness Patient is a 60yo male with PMH of HTN and NIDDM who presented to [facility] ED on 09/20 due to fevers, fatigue, cough and SOB. He has been living at home with a known COVID+ patient and they both developed symptoms 1 week prior. His symptoms began to worsen two or three days prior to presentation, with progressive dyspnea and fatigue. He reported temperatures of 102 at home. He does not normally wear oxygen at home but required 3L oxygen on arrival to the ED. Initial lab work revealed an elevated lactic acid of 2.4 and he was mildly tachycardic, so he was started on Rocephin and azithromycin. He was also found to have new onset lower extremity edema, and proBNP was elevated, so he only received 1L of NS due to concerns of fluid overload with possible congestive h eart failure. He was admitted to the floor but the following day became hypoxic on vapotherm, so he was placed on BiPAP and transferred to the ICU. He is currently receiving Decadron and Remdesivir, and is awaiting treatment with convalescent plasma. Allergies and Home Medications Allergies Coded Allergies: No Known Drug Allergies (Unverified , 12/03/18) Home Medications Hydrocodone Bit/Acetaminophen 1 Tab Tab, 1-2 EACH PO Q6H PRN for PAIN-MODERATE Prescribed by: ALVINO DAMON on 12/03/18 1224 Ondansetron HCl 4 Mg Tab, 4 MG PO Q4H Prescribed by: ALVINO DAMON on 12/03/18 1224 Sulfamethoxazole/Trimethoprim 1 Each Tablet, 1 EACH PO BID Prescribed by: ALVINO DAMON on 12/03/18 1224 Past Bmzunic-Vzcmkk-Fjxsmv Hx Past Med/Social Hx: Reviewed Nursing Past Med/Soc Hx Patient Social History Alcohol Use: Denies Use Recreational Drug Use: No Smoking Status: Never a Smoker 2nd Hand Smoke Exposure: No Recent Foreign Travel: No Contact w/Someone Who Travel: No Recent Infectious Disease Expo: No Recent Hopitalizations: No Seasonal Allergies Seasonal Allergies: No Past Medical History Surgeries: Yes CABG Respiratory: No Cardiac: Yes Heart Attack, Hypertension Neurological: No Genitourinary: No Gastrointestinal: No Musculoskeletal: No Endocrine: Yes Diabetes, Non-Insulin dep Cancer: No Psychosocial: No Integumentary: No Family Medical History Reviewed Nursing Family Hx Sepsis Event Evaluation Height, Weight, BMI Height: 6'" Weight: 250lbs. oz. 113.319182we; 40.81 BMI Method:Stated Exam Exam Vital Signs Date Time Temp Pulse Resp B/P (MAP) Pulse Ox O2 Delivery O2 Flow Rate FiO2 09/21/20 23:35 35.7 09/21/20 20:59 93 Vapotherm 31.00 100 09/21/20 20:39 36.0 09/21/20 20:00 Vapotherm 30.00 100 09/21/20 19:08 90 Vapotherm 31.00 100 09/21/20 19:00 93 09/21/20 17:00 93 131/83 (99) 93 Vapotherm 31.00 100.00 09/21/20 16:30 35.6 09/21/20 15:37 92 Vapotherm 31.00 100 09/21/20 12:29 89 09/21/20 12:00 88 15 140/112 (121) 94 Vapotherm 30.00 85.00 09/21/20 07:46 Vapotherm 30.00 65 09/21/20 07:45 35.8 87 19 130/81 (97) 90 Vapotherm 30.00 85.00 09/21/20 07:00 87 09/21/20 03:32 35.9 87 18 123/80 (94) 92 Vapotherm 30.00 85.00 I & O 09/22/20 07:00 Intake Total 1480 ml Output Total 2750 ml Balance -1270 ml Height & Weight Height: 6'" Weight: 250lbs. oz. 113.367273tt; 40.81 BMI Method:Stated General Appearance: No Apparent Distress, WD/WN, Obese HEENT: PERRL/EOMI, Moist Mucous Membranes Neck: Normal Inspection, Supple Respiratory: Lungs Clear, No Accessory Muscle Use; No Rhonci, No Wheezing; Other (on 15lpm) Cardiovascular: Regular Rate, Rhythm, No Murmur Capillary Refill: Less Than 3 Seconds Gastrointestinal: non tender, soft, no organomegaly Extremity: Normal Capillary Refill, No Calf Tenderness, Pedal Edema, Swelling (non pitting edema to calves) Neurologic/Psychiatric: Alert, Oriented x3, Normal Mood/Affect Skin: Normal Color, Warm/Dry Results Lab Laboratory Tests 09/20/20 12:05 09/21/20 06:30 09/21/20 15:15 Assessment/Plan Assessment/Plan Acute respiratory failure secondary to suspected COVID-19 -Currently on vapotherm 100% FiO2 at 31L/min -Continue decadron and remdesivir -Awaiting convalescent plasma Possible PNA with severe sepsis -Continue cefepime -Cultures pending -Check PCT Lactic acidosis- resolved HTN -Hold home meds DVT ppx -Lovenox BEREKET GIRON DO 09/22/20 0410: Allergies and Home Medications Allergies Coded Allergies: No Known Drug Allergies (Unverified , 12/03/18) Home Medications Hydrocodone Bit/Acetaminophen 1 Tab Tab, 1-2 EACH PO Q6H PRN for PAIN-MODERATE Prescribed by: ALVINO DAMON on 12/03/18 1224 Ondansetron HCl 4 Mg Tab, 4 MG PO Q4H Prescribed by: ALVINO DAMON on 12/03/18 1224 Sulfamethoxazole/Trimethoprim 1 Each Tablet, 1 EACH PO BID Prescribed by: ALVINO DAMON on 12/03/18 1224 Review of Systems Time Seen by Provider: 04:05 Assessment/Plan Assessment/Plan Acute respiratory failure secondary to suspected COVID-19 -Currently on vapotherm 100% FiO2 at 31L/min -Continue decadron and remdesivir -Awaiting convalescent plasma -Awake Proning -Check BNP, and PCT Possible PNA with severe sepsis -Continue cefepime -Cultures pending -Check PCT Lactic acidosis- resolved HTN -Hold home meds DVT/GI ppx -Lovenox Supervisory-Addendum Brief Verification & Attestation Participated in pt care: history, MDM, physical Personally performed: exam, history, MDM Care discussed with: Medical Student Procedures: n/a Verification and Attestation of Medical Student E/M Service A medical student performed and documented this service in my presence. I reviewed and verified all information documented by the medical student and made modifications to such information, when appropriate. I personally performed the physical exam and medical decision making. Bereket Giron, Sep 22, 2020,04:10 CELE PARK,MED STUDENT Sep 22, 2020 03:21 BEREKET GIRON DO Sep 22, 2020 04:10
[2020-09-22 03:25] LABS: HEMOGLOBIN 12.5 g/dL (13.3-17.7); MEAN PLATELET VOLUME 10.2 fL (9.0-12.2); WHITE BLOOD COUNT 19.1 10^3/uL (4.3-11.0)
[2020-09-22 03:36] LABS: ALBUMIN 3.1 GM/DL (3.2-4.5); CHLORIDE 101 MMOL/L (98-107); POTASSIUM 4.7 MMOL/L (3.6-5.0); SODIUM 137 MMOL/L (135-145)
[2020-09-22 03:38] LABS: GLUCOSE 133 MG/DL (70-105); TOTAL PROTEIN 6.6 GM/DL (6.4-8.2)
[2020-09-22 03:39] LABS: CARBON DIOXIDE 23 MMOL/L (21-32)
[2020-09-22 03:40] LABS: BILIRUBIN,TOTAL 0.6 MG/DL (0.1-1.0)
[2020-09-22 03:42] LABS: ALKALINE PHOSPHATASE 74 U/L (40-136); CREATININE SERUM 0.86 MG/DL (0.60-1.30); GFR ESTIMATED > 60
[2020-09-22 03:43] LABS: BUN/CREATININE RATIO 20
[2020-09-22 03:45] LABS: ALANINE AMINOTRANSFERASE 79 U/L (0-55)
[2020-09-22] MEDS: CEFEPIME INJECTION 1,000 MG in WATER (STERILE) FOR INJECTION 10 ML IV SCH ×4 (06:26→22:27)
[2020-09-22] MEDS: ENOXAPARIN 40 MG/0.4 ML (LOVENOX) SYR SC SCH ×2 (06:27→16:43)
--- NOTE | 2020-09-22 07:30 | Diagnostic Imaging Report ---
INDICATION: Followup COVID. Hypoxia. COMPARISON: 09/20/2020 FINDINGS: Single frontal radiographic view of the chest was obtained and again demonstrates diffuse patchy and confluent infiltrates. Since the previous exam, there does appear to be interval progression of disease, particularly on the right. There is no large effusion or pneumothorax. Cardiac silhouette remains enlarged. Sternotomy wires are noted. Osseous structures show no acute abnormalities. IMPRESSION: 1. Interval progression of diffuse bilateral infiltrates. 2. Cardiomegaly. Dictated by: Dictated on workstation # [id number]
[2020-09-22] MEDS: PANTOPRAZOLE 40 MG (PROTONIX) TAB PO SCH (08:53)
[2020-09-22] MEDS: ACETAMINOPHEN 325 MG TABLET PO PRN (08:53)
--- NOTE | 2020-09-22 09:09 | Physician Query Clarification ---
PQ-Uncertain Diagnosis Admission/Discharge Admission Date: Sep 20, 2020 at 15:00 Discharge Date: Dr. Singletary, The medical record reflects the following clinical scenario: History/Risk Factors: Covid, acute hypoxic respiratory failure, MOB Clinical Findings: T 36.2, P 101, R 24, WBC 20.3, Lactic acid 2.43 Treatment: IV Ceftriaxone, IV Axithromycin Question: Is Sepsis a clinically valid diagnosis? Sepsis was documented in the ED records, Dr. Giron consult with no further documentation in the medical record. Please document a response in Progress Note or Discharge Summary. 1. Yes, clinically valid, condition resolved. 2. No, condition ruled out. 3. Other, with explanation of clinical findings. 4. Undetermined, no explanation for clinical findings. PHYSICIAN RESPONSE Diagnosis clinically valid: No, conditon ruled out Please remember a lack of response to the above will prompt a phone page by CDI/Coding staff. In responding to this query, please exercise your independent professional judgment. The purpose of this communication is to more accurately reflect the complexity of your patients condition. The fact that a question is asked does not imply that any particular answer is desired or expected. Thank you for your timely response to this clarification. Requestors name: Luz Elena THIS PHYSICIAN QUERY FORM IS A PERMANENT PART OF THE MEDICAL RECORD LUZ ELENA SPENCER Sep 22, 2020 09:09 INA SINGLETARY MD Sep 28, 2020 21:03
--- NOTE | 2020-09-22 09:14 | Physician Query Clarification ---
PQ-CHF Specificity Admission Date: Sep 20, 2020 at 15:00 Discharge Date: Dr. Singletary, The medical record reflects the following clinical scenario: History/Risk Factors: Covid, acute hypoxic respiratory failure, MOB Clinical Findings: Pro-BNP 6606.0, Bilateral pitting lower extremity edema Treatment: IVP 10 mg Lasix Question: Can you further specify the acuity &/or type of CHF per the clinical indicators above? Please document a response in the Progress Notes or Discharge Summary. 1. Acuity: Acute, Chronic or Acute on Chronic 2. Type: Systolic, Diastolic or Systolic & Diastolic 3. Unspecified: CHF cannot be further specified regarding type or acuity 4. No CHF, fluid overload only 5. Other, with explanation of clinical findings 6. Clinically undetermined, no explanation for clinical findings PHYSICIAN RESPONSE Acuity: Clinically undetermined Type: Clinically undetermined Other, clinical findings Pt did not have diagnosed CHF. Please remember a lack of response to the above will prompt a phone page by CDI/Coding staff. In responding to this query, please exercise your independent professional judgment. The purpose of this communication is to more accurately reflect the complexity of your patients condition. The fact that a question is asked does not imply that any particular answer is desired or expected. Thank you for your timely response to this clarification. Requestors name: Luz Elena THIS PHYSICIAN QUERY FORM IS A PERMANENT PART OF THE MEDICAL RECORD LUZ ELENA SPENCER Sep 22, 2020 09:14 INA SINGLETARY MD Sep 28, 2020 21:05
[2020-09-22] MEDS ORDERED: METF-397 PO (14:07)
[2020-09-22] MEDS ORDERED: LISI40TA PO (14:07)
[2020-09-22] MEDS ORDERED: GLUC-116 PO (14:07)
[2020-09-22] MEDS ORDERED: FOLI0.8C PO (14:07)
[2020-09-22] MEDS ORDERED: CLOP75TA69 PO (14:07)
[2020-09-22] MEDS ORDERED: METO50TA15 PO (14:07)
[2020-09-22] MEDS ORDERED: ATOR80TA76 PO (14:07)
[2020-09-22] MEDS ORDERED: CHOL10002 PO (14:07)
[2020-09-22] MEDS ORDERED: DICL100G27 TP (14:11)
--- NOTE | 2020-09-22 14:12 | NUR ---
SPOKE WITH THE PT (CALLED HIS ROOM PHONE) AND GOT A MED LIST FROM THE [place] TO COMPLETE THE MED REC PT WAS ABLE TO VERIFY ALL HIS MEDICATIONS WELL WHEN/HOW HE TAKES EACH. THE FOLLOWING ARE FILL DATES FROM [facility]: 07-14-2020 ATORVASTATIN 80MG #45/90DS 07-14-2020 CLOPIDOGREL 75MG #90/90DS 07-15-2020 METFORMIN 500MG #180/90DS 07-15-2020 METOPROLOL TART 50MG #90/90DS 07-20-2020 LISINOPRIL 40MG #90/90DS OTC MEDS: GLUCOSAMINE CHONDROITIN MSM FOLIC ACID VIT D
[2020-09-22] MEDS ORDERED: NS IV 500 ML 500 ML ONE (14:24)
[2020-09-22] MEDS: REMDESIVIR INJ 100 MG in NS (IVPB) 230 ML IV SCH (16:43)
[2020-09-22] MEDS ORDERED: IBUPROFEN 600 MG (MOTRIN) TAB PO PRN (17:45)
[2020-09-22] MEDS ORDERED: WATER (STERILE) FOR INJECTION 10 ML ONE (21:35)
[2020-09-22] MEDS ORDERED: CEFEPIME 1 GM/10 ML (MAXIPIME) VIAL ONE (21:35)
[2020-09-22] MEDS: morphine INJ 4 MG/ML 1 ML (VIAL/SYRINGE) IVP PRN (22:27)
[2020-09-23] VITALS (7 sets, daily range): BP systolic 113–132; BP diastolic 64–76
[2020-09-23] MEDS ORDERED: CEFEPIME 1 GM/10 ML (MAXIPIME) VIAL ONE ×3 (04:04→20:54)
[2020-09-23] MEDS ORDERED: WATER (STERILE) FOR INJECTION 10 ML ONE ×2 (04:04→20:54)
[2020-09-23] MEDS: CEFEPIME INJECTION 1,000 MG in WATER (STERILE) FOR INJECTION 10 ML IV SCH ×4 (04:10→22:15)
[2020-09-23 04:13] LABS: CHLORIDE 105 MMOL/L (98-107); POTASSIUM 4.8 MMOL/L (3.6-5.0); SODIUM 138 MMOL/L (135-145)
[2020-09-23 04:15] LABS: GLUCOSE 142 MG/DL (70-105); TOTAL PROTEIN 6.4 GM/DL (6.4-8.2)
[2020-09-23 04:16] LABS: CARBON DIOXIDE 23 MMOL/L (21-32)
[2020-09-23 04:17] LABS: BILIRUBIN,TOTAL 0.5 MG/DL (0.1-1.0)
[2020-09-23 04:19] LABS: ALKALINE PHOSPHATASE 62 U/L (40-136); CREATININE SERUM 0.84 MG/DL (0.60-1.30); GFR ESTIMATED > 60
[2020-09-23 04:20] LABS: BUN/CREATININE RATIO 23
[2020-09-23 04:22] LABS: ALANINE AMINOTRANSFERASE 59 U/L (0-55)
--- NOTE | 2020-09-23 05:40 | Pulmonary Progress Note ---
Subjective Time Seen by a Provider: 05:38 Subjective/Events-last exam Pt is requiring 80% Vapotherm. Sepsis Event Evaluation Height, Weight, BMI Height: 6'" Weight: 250lbs. oz. 113.966092zj; 40.81 BMI Method:Stated Focused Exam Lactate Level 09/20/20 12:05: Lactic Acid Level 2.40*H 09/20/20 14:10: Lactic Acid Level 2.43*H 09/20/20 17:00: Lactic Acid Level 1.62 Time of Focused Exam: 13:05 Exam Exam Vital Signs Date Time Temp Pulse Resp B/P (MAP) Pulse Ox O2 Delivery O2 Flow Rate FiO2 09/23/20 04:00 35.9 76 16 113/70 (84) 92 Vapotherm 30.00 80.00 09/23/20 01:00 72 09/23/20 00:00 36.0 72 18 119/75 (90) 94 Vapotherm 30.00 80.00 09/22/20 21:36 92 Vapotherm 30.00 80 09/22/20 20:07 36.4 09/22/20 20:00 80 Vapotherm 30.00 09/22/20 20:00 85 126/85 (99) 91 Vapotherm 30.00 100.00 09/22/20 19:00 90 130/84 (99) 93 Vapotherm 30.00 100.00 09/22/20 19:00 90 09/22/20 18:48 93 Vapotherm 30.00 80 09/22/20 17:00 97 151/94 (113) 91 Vapotherm 30.00 100.00 09/22/20 16:15 36.4 09/22/20 16:00 87 125/83 (97) 91 Vapotherm 30.00 100.00 09/22/20 15:00 92 130/78 (95) 92 Vapotherm 30.00 100.00 09/22/20 14:40 36.8 82 36.7 36.0 09/22/20 14:18 91 Vapotherm 30.00 80 09/22/20 14:00 93 29 137/76 (96) 91 Vapotherm 30.00 100.00 09/22/20 13:00 98 21 133/77 (95) 94 Vapotherm 30.00 100.00 09/22/20 12:44 94 09/22/20 12:00 84 23 138/80 (99) 94 Vapotherm 30.00 100.00 09/22/20 11:00 84 9 141/79 (99) 93 Vapotherm 30.00 100.00 09/22/20 10:28 94 Vapotherm 30.00 80 09/22/20 10:00 89 26 134/78 (96) 94 Vapotherm 30.00 100.00 09/22/20 09:00 94 16 125/69 (87) 93 Vapotherm 30.00 100.00 09/22/20 08:00 101 22 125/65 (85) Vapotherm 30.00 100.00 09/22/20 07:40 Vapotherm 30.00 100 09/22/20 07:00 80 22 130/81 (97) 92 Vapotherm 30.00 100.00 09/22/20 06:32 91 Vapotherm 31.00 100 09/22/20 06:16 81 09/22/20 06:00 78 25 143/79 (100) 95 Vapotherm 30.00 100.00 I & O 09/23/20 07:00 Intake Total 1000 ml Output Total 2725 ml Balance -1725 ml Height & Weight Height: 6'" Weight: 250lbs. oz. 113.871070al; 40.81 BMI Method:Stated General Appearance: No Apparent Distress, WD/WN, Obese HEENT: PERRL/EOMI, Moist Mucous Membranes Neck: Normal Inspection, Supple Respiratory: Lungs Clear, No Accessory Muscle Use; No Rhonci, No Wheezing; Other (on 15lpm) Cardiovascular: Regular Rate, Rhythm, No Murmur Capillary Refill: Less Than 3 Seconds Gastrointestinal: non tender, soft, no organomegaly Extremity: Normal Capillary Refill, No Calf Tenderness, Pedal Edema, Swelling (non pitting edema to calves) Neurologic/Psychiatric: Alert, Oriented x3, Normal Mood/Affect Skin: Normal Color, Warm/Dry Results Lab Laboratory Tests 09/21/20 06:30 09/21/20 15:15 09/22/20 02:45 09/23/20 03:31 Assessment/Plan Assessment/Plan Acute respiratory failure secondary to suspected COVID-19 -Currently on vapotherm 100% FiO2 at 31L/min -Continue decadron and remdesivir -s/p convalescent plasma -Awake Proning -Lasix 40mg IV x 1 -Increase Lovenox to theraputic dosing secondary to DDIMer of 8.29 Possible PNA with severe sepsis -Continue cefepime -Cultures pending -Check PCT Lactic acidosis- resolved HTN -Hold home meds DVT/GI ppx -Lovenox OLINDA VERAS DO Sep 23, 2020 05:40
[2020-09-23] MEDS ORDERED: FUROSEMIDE 40 MG/4 ML INJ (LASIX) IVP ONE (05:45)
[2020-09-23 05:50] LABS: PHOSPHORUS 4.2 MG/DL (2.3-4.7)
[2020-09-23 05:51] LABS: MAGNESIUM 2.5 MG/DL (1.6-2.4)
[2020-09-23] MEDS ORDERED: ENOXAPARIN 40 MG/0.4 ML (LOVENOX) SYR SC SCH (06:00)
[2020-09-23] MEDS ORDERED: ENOXAPARIN 80 MG/0.8 ML (LOVENOX) SYR SC SCH (06:00)
[2020-09-23] MEDS: PANTOPRAZOLE 40 MG (PROTONIX) TAB PO SCH (09:41)
[2020-09-23] MEDS: REMDESIVIR INJ 100 MG in NS (IVPB) 230 ML IV SCH (16:42)
[2020-09-23] MEDS: ENOXAPARIN 300 MG/3 ML (LOVENOX) MULTI-DOSE VIAL SQ SCH (16:45)
[2020-09-23] MEDS: morphine INJ 4 MG/ML 1 ML (VIAL/SYRINGE) IVP PRN (22:16)
[2020-09-24] MEDS ORDERED: CEFEPIME 1 GM/10 ML (MAXIPIME) VIAL ONE ×4 (02:56→19:33)
[2020-09-24] MEDS ORDERED: WATER (STERILE) FOR INJECTION 10 ML ONE ×3 (02:56→19:33)
[2020-09-24 03:18] VITALS: BP 117/67
[2020-09-24] MEDS: CEFEPIME INJECTION 1,000 MG in WATER (STERILE) FOR INJECTION 10 ML IV SCH ×4 (03:18→21:29)
[2020-09-24 04:19] LABS: ALBUMIN 3.1 GM/DL (3.2-4.5); CHLORIDE 104 MMOL/L (98-107); POTASSIUM 4.5 MMOL/L (3.6-5.0); SODIUM 136 MMOL/L (135-145)
[2020-09-24 04:20] LABS: CALCIUM 8.4 MG/DL (8.5-10.1)
[2020-09-24 04:21] LABS: GLUCOSE 129 MG/DL (70-105)
[2020-09-24 04:23] LABS: BILIRUBIN,TOTAL 0.6 MG/DL (0.1-1.0); CARBON DIOXIDE 21 MMOL/L (21-32)
[2020-09-24 04:25] LABS: ALKALINE PHOSPHATASE 66 U/L (40-136); CREATININE SERUM 0.83 MG/DL (0.60-1.30); GFR ESTIMATED > 60; PHOSPHORUS 3.9 MG/DL (2.3-4.7)
[2020-09-24 04:26] LABS: BUN/CREATININE RATIO 27
[2020-09-24 04:28] LABS: ALANINE AMINOTRANSFERASE 53 U/L (0-55); MAGNESIUM 2.5 MG/DL (1.6-2.4)
[2020-09-24] MEDS: ENOXAPARIN 300 MG/3 ML (LOVENOX) MULTI-DOSE VIAL SQ SCH ×2 (05:52→21:28)
[2020-09-24] MEDS ORDERED: FUROSEMIDE 40 MG/4 ML INJ (LASIX) IVP NR (07:00)
--- NOTE | 2020-09-24 07:08 | NUR ---
dr. campbell on floor to see pt, new orders received.
--- NOTE | 2020-09-24 07:08 | Pulmonary Progress Note ---
Subjective Time Seen by a Provider: 07:06 Subjective/Events-last exam Pt still requiring high flow oxygen via Vapotherm. Sepsis Event Evaluation Height, Weight, BMI Height: 6'" Weight: 250lbs. oz. 113.435051tm; 40.81 BMI Method:Stated Focused Exam Time of Focused Exam: 13:05 Exam Exam Vital Signs Date Time Temp Pulse Resp B/P (MAP) Pulse Ox O2 Delivery O2 Flow Rate FiO2 09/24/20 03:18 36.4 66 18 117/67 (84) 96 Vapotherm 30.00 80.00 09/24/20 02:17 93 Vapotherm 30.00 80 09/24/20 01:00 61 09/23/20 23:27 36.6 66 18 116/64 (81) 96 Vapotherm 30.00 80.00 09/23/20 21:15 80 Vapotherm 30.00 80 09/23/20 20:52 94 Vapotherm 30.00 80 09/23/20 19:35 36.8 81 19 132/67 (88) 95 Vapotherm 30.00 80.00 09/23/20 19:00 82 09/23/20 15:49 35.8 85 18 119/68 (85) 93 Vapotherm 30.00 80.00 09/23/20 13:53 92 Vapotherm 30.00 80 09/23/20 12:36 88 09/23/20 12:00 36.7 84 16 128/76 (93) 91 Vapotherm 30.00 80.00 09/23/20 08:25 36.0 79 16 113/67 (82) 89 Vapotherm 30.00 80.00 09/23/20 08:00 80 Vapotherm 30.00 80 I & O 09/24/20 07:00 Intake Total 3015 ml Output Total 4600 ml Balance -1585 ml Height & Weight Height: 6'" Weight: 250lbs. oz. 113.502945fj; 40.81 BMI Method:Stated General Appearance: No Apparent Distress, WD/WN, Obese HEENT: PERRL/EOMI, Moist Mucous Membranes Neck: Normal Inspection, Supple Respiratory: Lungs Clear, No Accessory Muscle Use; No Rhonci, No Wheezing; Other (on 15lpm) Cardiovascular: Regular Rate, Rhythm, No Murmur Capillary Refill: Less Than 3 Seconds Gastrointestinal: non tender, soft, no organomegaly Extremity: Normal Capillary Refill, No Calf Tenderness, Pedal Edema, Swelling (non pitting edema to calves) Neurologic/Psychiatric: Alert, Oriented x3, Normal Mood/Affect Skin: Normal Color, Warm/Dry Results Lab Laboratory Tests 09/23/20 03:31 09/24/20 03:49 Assessment/Plan Assessment/Plan Acute respiratory failure secondary to suspected COVID-19 -Currently on vapotherm -- Titrate Fi02 as tolerated -Continue decadron and remdesivir -s/p convalescent plasma -Awake Proning -Lasix 40mg IV x 1 Presumed PE - Lovenox to theraputic dosing secondary to DDIMer of 8.29 Possible PNA with severe sepsis -Continue cefepime -Cultures pending -Check PCT Lactic acidosis- resolved HTN -Hold home meds DVT/GI ppx -Lovenox OLINDA VERAS DO Sep 24, 2020 07:08
--- NOTE | 2020-09-24 07:31 | NUR ---
0708-dr. campbell turned pt fio2 down to 65% at 30l on the vapotherm 0715-o2 sat 90% this rn turned pt fio2 70% 0720- pt o2 sat 89% this rn turned fio2 75% at 30L 0735-pt o2 94% while eating his breakfast, no distress noted.
[2020-09-24 08:15] VITALS: BP 115/69
[2020-09-24] MEDS: PANTOPRAZOLE 40 MG (PROTONIX) TAB PO SCH (08:30)
--- NOTE | 2020-09-24 09:14 | Diagnostic Imaging Report ---
Indication: Shortness of breath Frontal chest obtained at 9:00 hours a.m. is compared to 09/22/2020 There is cardiomegaly and post sternotomy change. Extensive bilateral infiltrates present are unchanged from 09/22/2020. There is no pneumothorax or pleural fluid. IMPRESSION: Unchanged extensive bilateral infiltrates with cardiomegaly. No new abnormality. Dictated by: Dictated on workstation # [id number]
[2020-09-24 12:04] VITALS: BP 115/69
[2020-09-24 16:35] VITALS: BP 130/79
[2020-09-24] MEDS: REMDESIVIR INJ 100 MG in NS (IVPB) 230 ML IV SCH (16:49)
--- NOTE | 2020-09-24 18:07 | NUR ---
REPORT RECEIVED FROM TAM JIMENEZ. ASSUMED CARE OF THE PATIENT AT THIS TIME. PATIENT TO ROOM 431 VIA WHEELCHAIR ACCOMPANIED BY PCT'S
[2020-09-24 18:12] VITALS: BP 144/72
[2020-09-24 20:03] VITALS: BP 132/73
[2020-09-24] MEDS: morphine INJ 4 MG/ML 1 ML (VIAL/SYRINGE) IVP PRN (23:05)
[2020-09-25] VITALS: BP 126/77
[2020-09-25] MEDS ORDERED: WATER (STERILE) FOR INJECTION 10 ML ONE ×4 (03:22→20:12)
[2020-09-25] MEDS ORDERED: CEFEPIME 1 GM/10 ML (MAXIPIME) VIAL ONE ×3 (03:22→20:13)
[2020-09-25] MEDS: CEFEPIME INJECTION 1,000 MG in WATER (STERILE) FOR INJECTION 10 ML IV SCH ×4 (03:33→21:35)
[2020-09-25 04:00] VITALS: BP 114/68
[2020-09-25] MEDS: ENOXAPARIN 300 MG/3 ML (LOVENOX) MULTI-DOSE VIAL SQ SCH ×2 (06:16→17:20)
[2020-09-25 07:37] LABS: BASOPHILS % (AUTO) 0 % (0-10); EOSINOPHILS % (AUTO) 0 % (0-10); HEMATOCRIT 48 % (40-54); HEMOGLOBIN 14.6 g/dL (13.3-17.7); LYMPHOCYTES # (AUTO) 1.3 10^3/uL (1.0-4.0); LYMPHOCYTES % (AUTO) 9 % (12-44); MEAN CORPUSCULAR HEMOGLOBIN 29 pg (25-34); MEAN CORPUSCULAR HGB CONC 31 g/dL (32-36); MEAN CORPUSCULAR VOLUME 95 fL (80-99); MEAN PLATELET VOLUME 10.4 fL (9.0-12.2); MONOCYTES # (AUTO) 1.1 10^3/uL (0.0-1.0); MONOCYTES % (AUTO) 8 % (0-12); NEUTROPHILS # (AUTO) 11.6 10^3/uL (1.8-7.8); NEUTROPHILS % (AUTO) 81 % (42-75); PLATELET COUNT 434 10^3/uL (130-400); WHITE BLOOD COUNT 14.3 10^3/uL (4.3-11.0)
[2020-09-25 07:44] LABS: ALANINE AMINOTRANSFERASE 55 U/L (0-55); ALBUMIN 3.5 GM/DL (3.2-4.5); ALKALINE PHOSPHATASE 64 U/L (40-136); BILIRUBIN,TOTAL 0.7 MG/DL (0.1-1.0); BUN/CREATININE RATIO 32; CARBON DIOXIDE 25 MMOL/L (21-32); CHLORIDE 101 MMOL/L (98-107); CREATININE SERUM 0.96 MG/DL (0.60-1.30); GFR ESTIMATED > 60; GLUCOSE 109 MG/DL (70-105); MAGNESIUM 2.5 MG/DL (1.6-2.4); PHOSPHORUS 4.5 MG/DL (2.3-4.7); POTASSIUM 5.1 MMOL/L (3.6-5.0); SODIUM 136 MMOL/L (135-145); TOTAL PROTEIN 7.7 GM/DL (6.4-8.2)
[2020-09-25] MEDS: PANTOPRAZOLE 40 MG (PROTONIX) TAB PO SCH (08:18)
[2020-09-25 09:11] VITALS: BP 131/73
[2020-09-25 12:00] VITALS: BP 188/97
--- NOTE | 2020-09-25 15:26 | Progress Note - Hospitalist ---
Subjective HPI/CC On Admission Date Seen by Provider: Sep 25, 2020 Time Seen by Provider: 10:20 Pt is a 60yoCM with a PMH of HTN and NIDDMII who presented to the ER due to shortness of breath. His girlfriend has COVID and they both developed symptoms about 1 week ago. He never got tested but assumed he had it as well. Over the past two or three days it had been worsening and he states when he arrived at the ER it was like he had "been bucking broncos." He states he's feeling better now than when he arrived to the ER. Despite this he was satting around 88% on 10lpm while I was at bedside. I instructed him to roll to his belly and prone while we get vapotherm. Sats improved to 92%. He denies any loss of taste or smell, nausea, vomiting, or diarrhea. He has had fevers up to 102. Subjective/Events-last exam He reports feeling better. He denies shortness of breath. He is not having fevers. He has been eating and drinking. He has been up moving around. He says he will do whatever he needs to do to get better. Focused Exam Time of Focused Exam: 13:05 Objective Exam Vital Signs Vital Signs Date Time Temp Pulse Resp B/P (MAP) Pulse Ox O2 Delivery O2 Flow Rate FiO2 09/25/20 12:00 35.6 91 22 188/97 (127) 90 Vapotherm 30.00 95.00 09/25/20 08:25 75 Capillary Refill : NONELess Than 3 Seconds General Appearance: No Apparent Distress, Obese Respiratory: Lungs Clear, Normal Breath Sounds, No Respiratory Distress Cardiovascular: Regular Rate, Rhythm, No Edema, No Murmur Gastrointestinal: Normal Bowel Sounds, Non Tender, Soft Extremity: Normal Inspection, Non Tender, Pedal Edema Neurologic/Psychiatric: Alert, Oriented x3, No Motor/Sensory Deficits, Normal Mood/Affect Skin: Normal Color, Warm/Dry Results/Procedures Lab Laboratory Tests 09/25/20 06:00 09/25/20 07:00 Patient resulted labs reviewed. Imaging: Reviewed Imaging Report Assessment/Plan Assessment and Plan Assess & Plan/Chief Complaint Acute respiratory failure due to suspected COVID-19 Hypercoagulable state due to COVID-19 Pneumonia Continue Decadron Continue Remdesivir s/p convalescent plasma x1 Supplemental oxygen as needed, currently on Vapotherm Therapeutic Lovenox for suspected PE Continue Cefepime Morbid obesity Clinically significant, no acute management needs Diagnosis/Problems Diagnosis/Problems (1) Respiratory failure with hypoxia Status: Acute Qualifiers: Chronicity: acute Qualified Codes: J96.01 - Acute respiratory failure with hypoxia (2) Suspected COVID-19 virus infection Status: Acute (3) Hypercoagulable state associated with COVID-19 Status: Acute (4) PNA (pneumonia) Status: Acute (5) Morbid obesity Status: Chronic Clinical Quality Measures DVT/VTE Risk/Contraindication: Risk Factor Score Per Nursin RFS Level Per Nursing on Admit: 4+=Very High DARBY PANDA MD Sep 25, 2020 15:26
[2020-09-25 15:46] VITALS: BP 138/86
[2020-09-25 20:58] VITALS: BP 130/83
[2020-09-25] MEDS: morphine INJ 4 MG/ML 1 ML (VIAL/SYRINGE) IVP PRN (21:35)
[2020-09-26] VITALS (7 sets, daily range): BP systolic 104–136; BP diastolic 54–82
[2020-09-26] MEDS ORDERED: CEFEPIME 1 GM/10 ML (MAXIPIME) VIAL ONE (03:17)
[2020-09-26] MEDS ORDERED: WATER (STERILE) FOR INJECTION 10 ML ONE (03:17)
[2020-09-26] MEDS: CEFEPIME INJECTION 1,000 MG in WATER (STERILE) FOR INJECTION 10 ML IV SCH ×4 (03:24→17:52)
[2020-09-26] MEDS: ENOXAPARIN 300 MG/3 ML (LOVENOX) MULTI-DOSE VIAL SQ SCH ×2 (06:17→18:57)
[2020-09-26 07:03] LABS: PHOSPHORUS 3.8 MG/DL (2.3-4.7)
[2020-09-26 07:05] LABS: MAGNESIUM 2.4 MG/DL (1.6-2.4)
[2020-09-26 09:13] LABS: BASOPHILS % (AUTO) 0 % (0-10); EOSINOPHILS # (AUTO) 0.1 10^3/uL (0.0-0.3); EOSINOPHILS % (AUTO) 0 % (0-10); HEMATOCRIT 45 % (40-54); HEMOGLOBIN 14.3 g/dL (13.3-17.7); LYMPHOCYTES # (AUTO) 1.2 10^3/uL (1.0-4.0); LYMPHOCYTES % (AUTO) 9 % (12-44); MEAN CORPUSCULAR HEMOGLOBIN 29 pg (25-34); MEAN CORPUSCULAR HGB CONC 32 g/dL (32-36); MEAN CORPUSCULAR VOLUME 93 fL (80-99); MEAN PLATELET VOLUME 10.2 fL (9.0-12.2); MONOCYTES # (AUTO) 1.3 10^3/uL (0.0-1.0); MONOCYTES % (AUTO) 9 % (0-12); NEUTROPHILS # (AUTO) 11.1 10^3/uL (1.8-7.8); NEUTROPHILS % (AUTO) 80 % (42-75); PLATELET COUNT 422 10^3/uL (130-400)
[2020-09-26 09:23] LABS: BUN/CREATININE RATIO 30; CALCIUM 8.8 MG/DL (8.5-10.1); CARBON DIOXIDE 19 MMOL/L (21-32); CHLORIDE 102 MMOL/L (98-107); CREATININE SERUM 0.88 MG/DL (0.60-1.30); GFR ESTIMATED > 60; GLUCOSE 129 MG/DL (70-105); POTASSIUM 4.8 MMOL/L (3.6-5.0); SODIUM 133 MMOL/L (135-145)
[2020-09-26 09:39] LABS: EOSINOPHILS % (MANUAL) 1 %; LYMPHOCYTES % (MANUAL) 12 %; MONOCYTES % (MANUAL) 12 %; NEUTROPHILS % (MANUAL) 75 %
[2020-09-26 09:40] LABS: RBC MORPH NORMAL
[2020-09-26] MEDS: PANTOPRAZOLE 40 MG (PROTONIX) TAB PO SCH (09:47)
--- NOTE | 2020-09-26 15:46 | NUR ---
"RD ASSESSMENT PMHx: HTN; DM; ID; PT INTERACTION: Note pt is currently in COVID isolation, per chart review. Note all diet information for nutrition assessment for LOS is per Anjali RN, or per chart review. Anjali states current appetite appears good. Note avg PO intake 98% x4d, per chart review. Anjali states no issues with n/v/c/d that she is aware of. Note last BM was 09/22, and pt not currently on bowel regimen per chart review. Note unable to determine recent wt hx, per chart review. Note unable to determine current level of DM management, and unable to determine recent HbA1c, per chart review. ABNORMAL NUTRITION-RELATED LAB VALUES LOW: Na 133; HIGH: BUN 26; glu 129; Est. kcal needs: 7766-7886 kcal | 15-18 kcal/kg Est. Pro needs: 100-125 g Pro | 0.8-1.0 g Pro/kg PES STATEMENT: Given current PO intake, no nutrition diagnosis at this time (NO-1.1). INTERVENTION: Continue with current diet order of Heart Healthy diet. Pt may benefit from consistent CHO restriction if blood glucose levels become elevated. Did not offer diet education on DM management d/t isolation precautions. Will continue to follow and reassess as pt needs, intake, and status change. Wong BRUNNER, MS RD LD [phone] cell"
--- NOTE | 2020-09-26 16:56 | NUR ---
DR PANDA REQUEST TO REMOVE QUARLES FROM THIS RN-PATIENT IS MAINTAINING SATURATION WITH ACTIVITY. NEW ORDERS RECEIVED.
[2020-09-26] MEDS ORDERED: IOHEXOL 350 MG/ML 100 ML (OMNIPAQUE 350) VIAL IV ONE (17:00)
[2020-09-26] MEDS ORDERED: HOLD METFORMIN - RECEIVED CONTRAST 20 ML VIAL IV SCH (17:00)
[2020-09-26] MEDS ORDERED: NS 100 ML (IVPB) BAG IV ONE (17:00)
--- NOTE | 2020-09-26 18:02 | Progress Note - Hospitalist ---
Subjective HPI/CC On Admission Date Seen by Provider: Sep 26, 2020 Time Seen by Provider: 11:40 Pt is a 60yoCM with a PMH of HTN and NIDDMII who presented to the ER due to shortness of breath. His girlfriend has COVID and they both developed symptoms about 1 week ago. He never got tested but assumed he had it as well. Over the past two or three days it had been worsening and he states when he arrived at the ER it was like he had "been bucking broncos." He states he's feeling better now than when he arrived to the ER. Despite this he was satting around 88% on 10lpm while I was at bedside. I instructed him to roll to his belly and prone while we get vapotherm. Sats improved to 92%. He denies any loss of taste or smell, nausea, vomiting, or diarrhea. He has had fevers up to 102. Subjective/Events-last exam He is feeling well today. He has had a nosebleed this morning. He is not feeling short of breath. He has been up and moving around. He has been eating and drinking. Focused Exam Time of Focused Exam: 13:05 Objective Exam Vital Signs Vital Signs Date Time Temp Pulse Resp B/P (MAP) Pulse Ox O2 Delivery O2 Flow Rate FiO2 09/26/20 15:05 94 High Flow N/C 5.00 09/26/20 12:00 35.8 90 20 136/75 (95) 09/26/20 07:27 60 Capillary Refill : NONELess Than 3 Seconds General Appearance: No Apparent Distress, Obese Respiratory: Lungs Clear, Normal Breath Sounds, No Respiratory Distress Cardiovascular: Regular Rate, Rhythm, No Edema, No Murmur Gastrointestinal: Normal Bowel Sounds, Non Tender, Soft Extremity: Normal Inspection, Non Tender, No Pedal Edema Neurologic/Psychiatric: Alert, Oriented x3, No Motor/Sensory Deficits, Normal Mood/Affect Skin: Normal Color, Warm/Dry Results/Procedures Lab Laboratory Tests 09/26/20 06:09 Patient resulted labs reviewed. Imaging: Reviewed Imaging Report Assessment/Plan Assessment and Plan Assess & Plan/Chief Complaint Acute respiratory failure due to suspected COVID-19 Hypercoagulable state due to COVID-19 Presumed PE Continue Decadron s/p Remdesivir s/p convalescent plasma x1 Therapeutic Lovenox for suspected PE Obtain CT Chest to evaluate for PE Procalcitonin remains normal, stop Cefepime Supplemental oxygen as needed, transitioned to nasal cannula today Morbid obesity Clinically significant, no acute management needs Diagnosis/Problems Diagnosis/Problems (1) Respiratory failure with hypoxia Status: Acute Qualifiers: Chronicity: acute Qualified Codes: J96.01 - Acute respiratory failure with hypoxia (2) Suspected COVID-19 virus infection Status: Acute (3) Hypercoagulable state associated with COVID-19 Status: Acute (4) PNA (pneumonia) Status: Acute (5) Morbid obesity Status: Chronic Clinical Quality Measures DVT/VTE Risk/Contraindication: Risk Factor Score Per Nursin RFS Level Per Nursing on Admit: 4+=Very High DARBY PANDA MD Sep 26, 2020 18:02
--- NOTE | 2020-09-26 21:20 | Diagnostic Imaging Report ---
PROCEDURE: CT angiography of the chest with contrast. TECHNIQUE: Multiple contiguous axial images were obtained through the chest after uneventful bolus administration of intravenous contrast. 3D reconstructed CTA MIP acquisitions were also performed. Auto Exposure Controls were utilized during the CT exam to meet ALARA standards for radiation dose reduction. INDICATION: Covid positive patient. Shortness of air. COMPARISON: None. FINDINGS: There are mild submassive pulmonary emboli identified within the bilateral segmental and subsegmental branches primarily involving the bilateral lower lobes and minimal involvement of the left upper lobe. Main pulmonary arterial trunk is slightly prominent at 3.2 cm in diameter. There is no asymmetric enlargement of the right atrium and right ventricle. Interventricular septum is in appropriate position. The heart size is mildly prominent. There is no large pericardial effusion. There is however advanced calcified coronary and mild scattered calcified aortic atherosclerosis. Few small bilateral hilar lymph nodes are noted. No abnormal mediastinal or axillary adenopathy is seen. Evaluation of the lung iraheta demonstrates extensive scattered patchy and confluent interstitial infiltrates throughout all 5 lobes. There is no large effusion or pneumothorax. Pulmonary nodule or mass may be obscured. There is however suggestion of 1 cm nodular density within the medial margins of the lingula of the left upper lobe (image 61, series 3). Osseous structures show age-related degenerative changes. Sternotomy wires and changes of previous sternotomy are identified. Included portions of the upper abdomen show nonobstructive right renal calculus. IMPRESSION: 1. Multiple small nonocclusive pulmonary emboli primarily involving the segmental and subsegmental branches of the bilateral lower lobes and to a lesser degree the left upper lobe. 2. No evidence of right heart strain. 3. Diffuse scattered patchy and confluent interstitial infiltrates consistent with clinical history of Covid pneumonia. 4. Nodular density within the lingula of the left upper lobe. Three month follow-up is recommended to assess stability. 5. Punctate nonobstructive right renal calculus. 6. Advanced calcified coronary atherosclerosis and mild cardiomegaly. Report was called to the patient's nurse. Dictated by: Dictated on workstation # [id number]
[2020-09-27] MEDS: ENOXAPARIN 300 MG/3 ML (LOVENOX) MULTI-DOSE VIAL SQ SCH (05:18)
[2020-09-27 06:03] LABS: BASOPHILS % (AUTO) 0 % (0-10); EOSINOPHILS % (AUTO) 0 % (0-10); HEMATOCRIT 45 % (40-54); HEMOGLOBIN 14.6 g/dL (13.3-17.7); LYMPHOCYTES # (AUTO) 1.1 10^3/uL (1.0-4.0); LYMPHOCYTES % (AUTO) 7 % (12-44); MEAN CORPUSCULAR HEMOGLOBIN 29 pg (25-34); MEAN CORPUSCULAR HGB CONC 32 g/dL (32-36); MEAN CORPUSCULAR VOLUME 91 fL (80-99); MEAN PLATELET VOLUME 9.5 fL (9.0-12.2); MONOCYTES # (AUTO) 1.3 10^3/uL (0.0-1.0); MONOCYTES % (AUTO) 9 % (0-12); NEUTROPHILS # (AUTO) 12.5 10^3/uL (1.8-7.8); NEUTROPHILS % (AUTO) 82 % (42-75); PLATELET COUNT 462 10^3/uL (130-400); WHITE BLOOD COUNT 15.1 10^3/uL (4.3-11.0)
[2020-09-27 06:23] LABS: CHLORIDE 101 MMOL/L (98-107); POTASSIUM 4.9 MMOL/L (3.6-5.0); SODIUM 133 MMOL/L (135-145)
[2020-09-27 06:24] LABS: CALCIUM 9.1 MG/DL (8.5-10.1); GLUCOSE 132 MG/DL (70-105)
[2020-09-27 06:26] LABS: CARBON DIOXIDE 23 MMOL/L (21-32)
[2020-09-27 06:28] LABS: CREATININE SERUM 0.85 MG/DL (0.60-1.30); GFR ESTIMATED > 60; PHOSPHORUS 3.6 MG/DL (2.3-4.7)
[2020-09-27 06:29] LABS: BUN/CREATININE RATIO 26
[2020-09-27 06:31] LABS: MAGNESIUM 2.1 MG/DL (1.6-2.4)
[2020-09-27 07:42] VITALS: BP 138/78
[2020-09-27 07:45] VITALS: BP 143/86
[2020-09-27 07:59] VITALS: BP 138/78
[2020-09-27] MEDS: PANTOPRAZOLE 40 MG (PROTONIX) TAB PO SCH (10:31)
--- NOTE | 2020-09-27 16:24 | Progress Note - Hospitalist ---
Subjective HPI/CC On Admission Date Seen by Provider: Sep 27, 2020 Time Seen by Provider: 11:50 Pt is a 60yoCM with a PMH of HTN and NIDDMII who presented to the ER due to shortness of breath. His girlfriend has COVID and they both developed symptoms about 1 week ago. He never got tested but assumed he had it as well. Over the past two or three days it had been worsening and he states when he arrived at the ER it was like he had "been bucking broncos." He states he's feeling better now than when he arrived to the ER. Despite this he was satting around 88% on 10lpm while I was at bedside. I instructed him to roll to his belly and prone while we get vapotherm. Sats improved to 92%. He denies any loss of taste or smell, nausea, vomiting, or diarrhea. He has had fevers up to 102. Subjective/Events-last exam he continues to feel better every day. He denies shortness of breath. He has been eating and drinking without issue. He has been up and moving around. He has no complaints or concerns. Focused Exam Time of Focused Exam: 13:05 Objective Exam Vital Signs Vital Signs Date Time Temp Pulse Resp B/P (MAP) Pulse Ox O2 Delivery O2 Flow Rate FiO2 09/27/20 08:00 92 7.00 09/27/20 07:59 138/78 (98) High Flow N/C 09/27/20 07:45 36.3 84 20 09/26/20 07:27 60 Capillary Refill : NONELess Than 3 Seconds General Appearance: No Apparent Distress, Obese Respiratory: Lungs Clear, Normal Breath Sounds, No Respiratory Distress Cardiovascular: Regular Rate, Rhythm, No Edema, No Murmur Gastrointestinal: Normal Bowel Sounds, Non Tender, Soft Extremity: Normal Inspection, Non Tender, No Pedal Edema Neurologic/Psychiatric: Alert, Oriented x3, No Motor/Sensory Deficits, Normal Mood/Affect Skin: Normal Color, Warm/Dry Results/Procedures Lab Laboratory Tests 09/27/20 05:50 Patient resulted labs reviewed. Imaging: Reviewed Imaging Report Assessment/Plan Assessment and Plan Assess & Plan/Chief Complaint Acute respiratory failure due to suspected COVID-19 Hypercoagulable state due to COVID-19 Pulmonary embolism Continue Decadron s/p Remdesivir s/p convalescent plasma x1 Lovenox for PE Transition to Eliquis Supplemental oxygen, weaning as able Morbid obesity Clinically significant, no acute management needs Diagnosis/Problems Diagnosis/Problems (1) Pulmonary embolism Status: Acute (2) Respiratory failure with hypoxia Status: Acute Qualifiers: Chronicity: acute Qualified Codes: J96.01 - Acute respiratory failure with hypoxia (3) Suspected COVID-19 virus infection Status: Acute (4) Hypercoagulable state associated with COVID-19 Status: Acute (5) PNA (pneumonia) Status: Acute (6) Morbid obesity Status: Chronic Clinical Quality Measures DVT/VTE Risk/Contraindication: Risk Factor Score Per Nursin RFS Level Per Nursing on Admit: 4+=Very High DARBY PANDA MD Sep 27, 2020 16:24
[2020-09-27 16:30] VITALS: BP 132/77
[2020-09-27] MEDS: APIXABAN 5 MG (ELIQUIS) TABLET PO SCH (21:06)
[2020-09-28 00:18] VITALS: BP 127/75
[2020-09-28 06:36] LABS: PHOSPHORUS 3.3 MG/DL (2.3-4.7)
[2020-09-28 08:00] VITALS: BP 150/91
[2020-09-28] MEDS: PANTOPRAZOLE 40 MG (PROTONIX) TAB PO SCH (08:40)
[2020-09-28] MEDS: APIXABAN 5 MG (ELIQUIS) TABLET PO SCH ×2 (08:40→20:31)
--- NOTE | 2020-09-28 13:49 | Progress Note - Hospitalist ---
Subjective HPI/CC On Admission Date Seen by Provider: Sep 28, 2020 Time Seen by Provider: 11:00 Pt is a 60yoCM with a PMH of HTN and NIDDMII who presented to the ER due to shortness of breath. His girlfriend has COVID and they both developed symptoms about 1 week ago. He never got tested but assumed he had it as well. Over the past two or three days it had been worsening and he states when he arrived at the ER it was like he had "been bucking broncos." He states he's feeling better now than when he arrived to the ER. Despite this he was satting around 88% on 10lpm while I was at bedside. I instructed him to roll to his belly and prone while we get vapotherm. Sats improved to 92%. He denies any loss of taste or smell, nausea, vomiting, or diarrhea. He has had fevers up to 102. Subjective/Events-last exam He is feeling better every day. He denies shortness of breath. He has been up and moving around. He has been eating and drinking. He feels ready to get out of the hospital. He is ready to go back to work. Focused Exam Time of Focused Exam: 13:05 Objective Exam Vital Signs Vital Signs Date Time Temp Pulse Resp B/P (MAP) Pulse Ox O2 Delivery O2 Flow Rate FiO2 09/28/20 08:00 High Flow N/C 5.00 09/28/20 08:00 36.0 75 18 150/91 (110) 90 09/26/20 07:27 60 Capillary Refill : NONELess Than 3 Seconds General Appearance: No Apparent Distress, Obese Respiratory: Lungs Clear, Normal Breath Sounds, No Respiratory Distress Cardiovascular: Regular Rate, Rhythm, No Edema, No Murmur Gastrointestinal: Normal Bowel Sounds, Non Tender, Soft Extremity: Normal Inspection, Non Tender, No Pedal Edema Neurologic/Psychiatric: Alert, Oriented x3, No Motor/Sensory Deficits, Normal Mood/Affect Skin: Normal Color, Warm/Dry Results/Procedures Lab Patient resulted labs reviewed. Imaging: Reviewed Imaging Report Assessment/Plan Assessment and Plan Assess & Plan/Chief Complaint Acute respiratory failure due to suspected COVID-19 Hypercoagulable state due to COVID-19 Pulmonary embolism Continue Decadron, day 8/10 s/p Remdesivir s/p convalescent plasma x1 Continue Eliquis Supplemental oxygen, weaning as able Home O2 evaluation Likely discharge home tomorrow Morbid obesity Clinically significant, no acute management needs Diagnosis/Problems Diagnosis/Problems (1) Pulmonary embolism Status: Acute (2) Respiratory failure with hypoxia Status: Acute Qualifiers: Chronicity: acute Qualified Codes: J96.01 - Acute respiratory failure with hypoxia (3) Suspected COVID-19 virus infection Status: Acute (4) Hypercoagulable state associated with COVID-19 Status: Acute (5) PNA (pneumonia) Status: Acute (6) Morbid obesity Status: Chronic Clinical Quality Measures DVT/VTE Risk/Contraindication: Risk Factor Score Per Nursin RFS Level Per Nursing on Admit: 4+=Very High DARBY PANDA MD Sep 28, 2020 13:49
[2020-09-28 15:30] VITALS: BP 135/74
--- NOTE | 2020-09-28 15:59 | NUR ---
patient placed on room air for 60 min. sat dropped to 93% patient then walked and sat went to 92% patient did not qualify for home oxygen Addendum: 09/28/20 at 1600 by MICHEL LAZAR RT Amended: Links added.
[2020-09-29 00:19] VITALS: BP 125/74
[2020-09-29 06:15] LABS: BASOPHILS % (AUTO) 0 % (0-10); EOSINOPHILS % (AUTO) 0 % (0-10); HEMATOCRIT 45 % (40-54); HEMOGLOBIN 14.3 g/dL (13.3-17.7); LYMPHOCYTES # (AUTO) 1.4 10^3/uL (1.0-4.0); LYMPHOCYTES % (AUTO) 11 % (12-44); MEAN CORPUSCULAR HEMOGLOBIN 29 pg (25-34); MEAN CORPUSCULAR HGB CONC 32 g/dL (32-36); MEAN CORPUSCULAR VOLUME 92 fL (80-99); MEAN PLATELET VOLUME 9.4 fL (9.0-12.2); MONOCYTES # (AUTO) 1.1 10^3/uL (0.0-1.0); MONOCYTES % (AUTO) 9 % (0-12); NEUTROPHILS # (AUTO) 9.8 10^3/uL (1.8-7.8); NEUTROPHILS % (AUTO) 79 % (42-75); PLATELET COUNT 417 10^3/uL (130-400); WHITE BLOOD COUNT 12.4 10^3/uL (4.3-11.0)
[2020-09-29 06:25] LABS: CHLORIDE 102 MMOL/L (98-107); POTASSIUM 4.5 MMOL/L (3.6-5.0); SODIUM 134 MMOL/L (135-145)
[2020-09-29 06:26] LABS: CALCIUM 8.9 MG/DL (8.5-10.1)
[2020-09-29 06:27] LABS: GLUCOSE 118 MG/DL (70-105)
[2020-09-29 06:28] LABS: CARBON DIOXIDE 23 MMOL/L (21-32)
[2020-09-29 06:31] LABS: CREATININE SERUM 0.79 MG/DL (0.60-1.30); GFR ESTIMATED > 60
[2020-09-29 06:32] LABS: BUN/CREATININE RATIO 25
[2020-09-29 06:33] LABS: MAGNESIUM 1.9 MG/DL (1.6-2.4)
[2020-09-29 08:00] VITALS: BP 131/68
[2020-09-29] MEDS: APIXABAN 5 MG (ELIQUIS) TABLET PO SCH (08:15)
[2020-09-29] MEDS: PANTOPRAZOLE 40 MG (PROTONIX) TAB PO SCH (08:15)
[2020-09-29] MEDS ORDERED: APIX5TAB PO (11:38)
--- NOTE | 2020-09-29 11:54 | Discharge Inst-Simple/Standard ---
Discharge Inst-Standard Discharge Medications New, Converted or Re-Newed RX: Transmitted to Pharmacy Patient Instructions/Follow Up Plan of Care/Instructions/FU: Please continue to take your medications as written. Please follow up with your primary care doctor to follow up this hospital stay. Activity as Tolerated: Yes Discharge Diet: Cardiac Diet Return to The Hospital For: Chest pain, shortness of breath, fever, confusion, if you feel you are getting worse. Planned Outpatient Orders/Ref. Pneu Vac Indicated: Yes INA JARA MD Sep 29, 2020 11:53
--- NOTE | 2020-09-29 11:55 | Discharge Summary ---
Diagnosis/Chief Complaint Date of Admission Sep 20, 2020 at 15:00 Date of Discharge Discharge Date: Sep 29, 2020 Admission Diagnosis Acute hypoxic respiratory due COVID19 Primary Care No,Local Physician Discharge Diagnosis (1) Pulmonary embolism Status: Acute (2) Respiratory failure with hypoxia Status: Acute (3) Suspected COVID-19 virus infection Status: Acute (4) Hypercoagulable state associated with COVID-19 Status: Acute (5) PNA (pneumonia) Status: Acute (6) Morbid obesity Status: Chronic Discharge Summary Procedures/Consulations Pulm- Dr Giron Discharge Physical Exam Allergies: Coded Allergies: No Known Drug Allergies (Unverified , 12/03/18) Vitals & I&Os Vital Signs Date Time Temp Pulse Resp B/P (MAP) Pulse Ox O2 Delivery O2 Flow Rate FiO2 09/29/20 17:40 36.9 86 18 146/84 93 High Flow N/C 2.00 09/26/20 07:27 60 General Appearance: No Apparent Distress, Obese Respiratory: Lungs Clear, No Respiratory Distress Cardiovascular: Regular Rate, Rhythm, No Murmur Neurologic/Psychiatric: Alert, Oriented x3 Hospital Course Pt was admitted due to acute hypoxic respiratory failure due to presumed COVID19. He tested negative for COVID but clinically was consistent with COVID and his girlfriend with whom he lives was positive. He was treated with remdesivir, decadron, and convalescent plasma. He required significant amounts of oxygen and was in the ICU for BiPAP for a short term. CTA was done and revealed multiple PEs. He was started on anticoagulation. He responded well to treatment and was able to be titrated down on oxygen. He was found to have a 2lpm oxygen need on exertion which was arranged prior to discharge. He is to continue on anticoagulation and follow up with his cardiology physician [facility]. Labs (last 24 hrs) Microbiology 09/20/20 Blood Culture - Final, Complete Staph, Coag Neg ([employer]) See Comments Patient resulted labs reviewed. Pending Labs Imaging: Reviewed Imaging Report Discussion & Recommendations Discharge Planning: >30 minutes discharge planning Discharge Home Medications: Active Scripts Active Eliquis (Apixaban) 5 Mg Tablet 5 Mg PO BID 30 Days TAKE 2 TABLETS BID X 7 DAYS, THEN 1 TABLET BID Reported Diclofenac Sodium 100 Gm Gel..gram. 2 Gm TP TID PRN Vitamin D3 (Cholecalciferol (Vitamin D3)) 25 Mcg Tablet 25 Mcg PO DAILY Folic Acid 0.8 Mg Capsule 0.8 Mg PO DAILY Dbfqudogcx-Rrfalehvaot-PXC Tab (Gluc/Doe-MSM#2/C/D3/Toño/Born) 1 Each Tablet 1 Each PO DAILY Metoprolol Tartrate 50 Mg Tablet 25 Mg PO BID TAKES (50MG) TAB Metformin HCl 500 Mg Tablet 500 Mg PO BID Lisinopril 40 Mg Tablet 40 Mg PO DAILY Plavix (Clopidogrel Bisulfate) 75 Mg Tablet 75 Mg PO DAILY Atorvastatin Calcium 80 Mg Tablet 40 Mg PO HS TAKES (80MG) TAB Instructions to patient/family Please see electronic discharge instructions given to patient. Clinical Quality Measures DVT/VTE Risk/Contraindication: Risk Factor Score Per Nursin RFS Level Per Nursing on Admit: 4+=Very High Problem Qualifiers (1) Respiratory failure with hypoxia: Chronicity: acute Qualified Codes: J96.01 - Acute respiratory failure with hypoxia INA JARA MD Sep 29, 2020 11:55
--- NOTE | 2020-09-29 16:00 | NUR ---
pt was placed on room air for 30 minutes. pt was then walked. pt desaturated to 88% after 3minutes. pt then placed on 2l of o2. pt saturation came up to 94% after 3 minutes. pt will need 2l on excursion Addendum: 09/29/20 at 1602 by MUMTAZ OCONNELL RT Amended: Links added.
[2020-09-29 16:36] VITALS: BP 146/84
--- NOTE | 2020-09-29 17:39 | NUR ---
CM/SS Finalized plan. Plan completed by Robert CAROLINA. Plan: Patient will return home with a new oxygen need for 2L on exertion. DME: The patient chose [id number] in [place]. Robert sent face sheet, h&P, home o2 study, Insurance and script to agency. They are delivery to the hospital. Insurance: The patient has [employer] insurance. Robert contacted [facility] and confirmed they would accept a patient with straight VA insurance. They verbalized they do. No further needs.
[2020-09-29 17:40] VITALS: BP 146/84
== END 2020-09-29 17:40 | disposition home or self-care (01) | DRG 177 ==
LOC: EDUNIT# 11:21 → ER FS 11:22 → 4TH 15:00 → ICU 09-21 08:00 → CSD 09-22 20:36 → 4TH 09-24 18:20
PROVIDERS: ADMIT Family Medicine; ATTEND Family Medicine
PROC: XW033E5 Introduction of Remdesivir Anti-infective into Peripheral Vein, Percutaneous Approach, New Technology Group 5 (ICD-10-PCS; principal; 2020-09-22)
PROC: XW13325 Transfusion of Convalescent Plasma (Nonautologous) into Peripheral Vein, Percutaneous Approach, New Technology Group 5 (ICD-10-PCS; 2020-09-22)
DX: U07.1 COVID-19 (principal); J96.01 Acute respiratory failure with hypoxia; J12.89 Other viral pneumonia; I26.99 Other pulmonary embolism without acute cor pulmonale; Z68.41 Body mass index [BMI] 40.0-44.9, adult; E87.2 Acidosis; D68.59 Other primary thrombophilia; E66.01 Morbid (severe) obesity due to excess calories; I10 Essential (primary) hypertension; E11.9 Type 2 diabetes mellitus without complications; Z95.1 Presence of aortocoronary bypass graft; I25.2 Old myocardial infarction
CPT/HCPCS: 36415; 71045; 71275; 80048; 80053; 82962; 83605; 83735; 83880; 84100; 84145; 84484; 85007; 85025; 85027; 85379; 85610; 85730; 86769; 86900; 86901; 87040; 87635; 93041; 94664; 94760; 94761; 96374; 96375

== ENCOUNTER 2021-05-12 09:23 | Emergency (ER) | payer OTHER ==
[~2021-05-12] VITALS: Ht 180 cm; Wt 122.7 kg
[~2021-05-12 09:23] MED LIST changes: +APIX5TAB PO; +ATOR80TA76 PO; +CHOL-34 PO; +CLOP75TA69 PO; +DICL100G27 TP; +FOLI0.8C PO; +GLUC-116 PO; +LISI40TA9 PO; +METF-397 PO; +METO50TA15 PO; -SULF1TAB35 PO; +SULF1TAB38 PO
--- NOTE | 2021-05-12 11:00 | Diagnostic Imaging Report ---
INDICATION: Left shoulder pain. TECHNIQUE: AP, oblique, and transscapular views of the left shoulder are obtained. FINDINGS: No fracture or acute bony abnormality is seen. Glenohumeral joint shows mild degenerative change. AC joint appears unremarkable. IMPRESSION: Mild degenerative findings of AC joint with no acute-appearing abnormality. Dictated by: Dictated on workstation # [id number]
--- NOTE | 2021-05-12 12:37 | ED Upper Extremity ---
General Chief Complaint: Upper Extremity Stated Complaint: L SHOULDER INJ Nursing Triage Note: AMB TO ROOM WITH L SHOULDER PAIN HAD INJURY 1 YEAR AGO. ON TUESDAY WAS WORKING WITH HORSE AND FELT A POP IN L SHOULDER. WAS TOLD BY [facility] IN [place] TO COME TO ER FOR A MRI. Source: patient Exam Limitations: no limitations History of Present Illness Date Seen by Provider: May 12, 2021 Time Seen by Provider: 10:27 Initial Comments This 61-year-old gentleman presents to the emergency room with complaints of pain in the left anterior shoulder. He was pushing on a horse on Tuesday, May 08 when he felt a popping sensation and had instant pain in this area. He reports a prior injury to the area that resolved with therapy. He reported his current injury to the [facility] clinic in [place]. He reports he was told to present to the emergency room "to get an MRI". Allergies and Home Medications Allergies Coded Allergies: No Known Drug Allergies (Unverified , 12/03/18) Home Medications Apixaban 5 Mg Tablet, 5 MG PO BID TAKE 2 TABLETS BID X 7 DAYS, THEN 1 TABLET BID Prescribed by: INA JARA on 09/29/20 1138 Atorvastatin Calcium 80 Mg Tablet, 40 MG PO HS, (Reported) TAKES (80MG) TAB Cholecalciferol (Vitamin D3) 25 Mcg Tablet, 25 MCG PO DAILY, (Reported) Clopidogrel Bisulfate 75 Mg Tablet, 75 MG PO DAILY, (Reported) Diclofenac Sodium 100 Gm Gel..gram., 2 GM TP TID PRN for PAIN-BREAKTHROUGH, (Reported) Folic Acid 0.8 Mg Capsule, 0.8 MG PO DAILY, (Reported) Gluc/Doe-MSM#2/C/D3/Toño/Born 1 Each Tablet, 1 EACH PO DAILY, (Reported) Lisinopril 40 Mg Tablet, 40 MG PO DAILY, (Reported) Metformin HCl 500 Mg Tablet, 500 MG PO BID, (Reported) Metoprolol Tartrate 50 Mg Tablet, 25 MG PO BID, (Reported) TAKES (50MG) TAB Patient Home Medication List Home Medication List Reviewed: Yes Review of Systems Constitutional: no symptoms reported EENTM: no symptoms reported Respiratory: no symptoms reported Cardiovascular: no symptoms reported Gastrointestinal: no symptoms reported Musculoskeletal: see HPI Skin: no symptoms reported Psychiatric/Neurological: No Symptoms Reported Past Njuvsqj-Yibmlv-Uhmrbf Hx Patient Social History Tobacco Use?: No Substance use?: No Pt feels they are or have been: No Seasonal Allergies Seasonal Allergies: No Past Medical History Surgery/Hospitalization HX: COVID IN DEC Surgeries: Yes CABG, Orthopedic Respiratory: Yes Pulmonary Embolism (Secondary to COVID-19) Cardiac: Yes Coronary Artery Disease, Heart Attack, Hypertension Neurological: No Genitourinary: No Gastrointestinal: No Musculoskeletal: No Endocrine: Yes Diabetes, Non-Insulin dep (Borderline) Cancer: No Psychosocial: No Integumentary: No Physical Exam Vital Signs Vital Signs - First Documented 05/12/21 09:38 Temp 36.3 Pulse 80 Resp 18 B/P (MAP) 184/96 (125) Pulse Ox 96 O2 Delivery Room Air Capillary Refill : Less Than 3 Seconds Height, Weight, BMI Height: 6'" Weight: 250lbs. oz. 113.175811vs; 37.00 BMI Method:Stated General Appearance: WD/WN, no apparent distress, obese Cardiovascular: regular rate, rhythm, no murmur Respiratory: lungs clear, normal breath sounds, no respiratory distress Shoulder: normal inspection, limited ROM (Slightly limited secondary to pain. No significant weakness.), pain (Pain in anterior shoulder with range of motion.), soft tissue tenderness (Tenderness over the anterior shoulder at the insertion of the biceps tendon.) Progress/Results/Core Measures Results/Orders My Orders Orders - SOSA SOLORZANO MD Shoulder, Left, 3 Views (05/12/21 10:35) Vital Signs/I&O Blood Pressure Mean: 125 Progress Progress Note : Progress Note Shoulder x-ray revealed no bony acute injury. Patient was advised to seek further follow-up with his primary care provider to discuss therapy and/or MRI imaging. See discharge instructions for further discussion. Diagnostic Imaging Diagonstic Imaging: Xray Plain Films/CT/US/NM/MRI: other (Left shoulder) Comments NAME: TONA KING MED REC#: [id number] PT STATUS: REG ER : 1960 PHYSICIAN: SOSA SOLORZANO MD ADMIT DATE: 05/12/21/ER Signed Date of Exam:05/12/21 SHOULDER, LEFT, 3 VIEWS INDICATION: Left shoulder pain. TECHNIQUE: AP, oblique, and transscapular views of the left shoulder are obtained. FINDINGS: No fracture or acute bony abnormality is seen. Glenohumeral joint shows mild degenerative change. AC joint appears unremarkable. IMPRESSION: Mild degenerative findings of AC joint with no acute-appearing abnormality. Dictated by: Dictated on workstation # [id number] Dict: 05/12/21 1057 Trans: 05/12/21 1201 [id number] Interpreted by: MORE MAURO MD Electronically signed by: MORE MAURO MD 05/12/21 1201 Departure Impression Primary Impression: Injury of left shoulder Qualified Codes: S49.92XA - Unspecified injury of left shoulder and upper arm, initial encounter Disposition: HOME, SELF-CARE Condition: Stable Departure-Patient Inst. Decision time for Depature: 12:35 Referrals: NO,LOCAL PHYSICIAN (PCP/Family) Primary Care Physician Patient Instructions: Shoulder Pain (DC), Shoulder Sprain ED Add. Discharge Instructions: The exact cause of your shoulder pain is uncertain but it may be related to biceps tendon injury or rotator cuff injury. For pain you may use 20-minute intervals of icing, ibuprofen up to 600 mg every 6 hours, and or Tylenol (acetaminophen) up to 1000 mg every 6 hours as needed. Gradually increase level of activity as pain allows. Exercise range of motion multiple times a day to prevent shoulder stiffness. Follow-up with your primary care provider as you may need further therapy and/or outpatient MRI for further treatment and evaluation. Call with questions or concerns. Return to the ER if you have worsening symptoms. All discharge instructions reviewed with patient and/or family. Voiced understanding. SOSA SOLORZANO MD May 12, 2021 12:37
[2021-05-12 12:49] VITALS: BP 184/96
== END 2021-05-12 12:48 | disposition home or self-care (01) ==
LOC: EDUNIT# 09:23 → ER 09:24
DX: S49.92XA Unspecified injury of left shoulder and upper arm, initial encounter (principal); E66.9 Obesity, unspecified; I25.2 Old myocardial infarction; I10 Essential (primary) hypertension; E11.9 Type 2 diabetes mellitus without complications; I25.10 Atherosclerotic heart disease of native coronary artery without angina pectoris; Z68.37 Body mass index [BMI] 37.0-37.9, adult; Z86.711 Personal history of pulmonary embolism; Z79.84 Long term (current) use of oral hypoglycemic drugs; Z79.01 Long term (current) use of anticoagulants; Z79.899 Other long term (current) drug therapy; X50.0XXA Overexertion from strenuous movement or load, initial encounter
CPT/HCPCS: 73030

== ENCOUNTER → 2021-10-23 | Outpatient (CLI) | payer OTHER | LOC: LAB FS 10:49 | PROVIDERS: ATTEND Orthopaedic Surgery | DX: Z01.812 Encounter for preprocedural laboratory examination (principal); Z86.16 Personal history of COVID-19 ==

== ENCOUNTER 2023-08-05 12:49 | Emergency (ER) | payer OTHER ==
[~2023-08-05] VITALS: Ht 180 cm; Wt 129.5 kg
[~2023-08-05 12:49] MED LIST changes: +CLOP-31 PO; -CLOP75TA69 PO; -DICL100G27 TP; +DICL100G32 TP
--- NOTE | 2023-08-05 13:17 | ED Fall/Injury ---
General Chief Complaint: Trauma-Non Activation Stated Complaint: RT KNEE PAIN; FALL Source: patient History of Present Illness Date Seen by Provider: Aug 05, 2023 Time Seen by Provider: 12:51 Initial Comments 63 yo male presenting with pain to right medial and posterior knee x 3 weeks. 3 weeks ago he had fallen and twisted his knee. He reports initially he had bruising to the back of his knee. He has been using crutches as he has too much pain to be able to bear weight. 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 [facility] to come get [facility] an d be seen. He finally was able to reach someone today. He has been taking 2 acetaminophen and 3 ibuprofen at a time to try and help with pain. He last took some this morning. He was still having severe pain in concerned that he would need something more. He denies any numbness or tingling. Occurred: other (3 weeks ago) Severity: severe Injuries/Pain Location: lower extremity (Right knee) Context: tripped Loss of Consciousness: no loss of consciousness Modifying Factors: Worse With Movement; Improves With Pain Medication Associated Symptoms (Fall): No Abdominal Pain, No Chest Pain, No Confusion, No Dizziness, No Headache, No Lightheadedness, No Muscle Spasms, No Nausea/Vomiting, No Neck Pain, No Ringing in Ears, No Seizures, No Shortness of Air, No Slurred Speech; Trouble Walking; No Vision Changes Allergies and Home Medications Allergies Coded Allergies: No Known Drug Allergies (Unverified , 12/03/18) Patient Home Medication List Home Medication List Reviewed: Yes Apixaban (Eliquis) 5 Mg Tablet, 5 MG PO BID Prescribed by: INA JARA on 09/29/20 1138 Atorvastatin Calcium (Atorvastatin Calcium) 80 Mg Tablet, 40 MG PO HS, (Reported) Entered as Reported by: MAGGIE CARNEY on 09/22/20 1407 Cholecalciferol (Vitamin D3) (Vitamin D3) 25 Mcg Tablet, 25 MCG PO DAILY, (Reported) Entered as Reported by: MAGGIE CARNEY on 09/22/20 1407 Clopidogrel Bisulfate (Plavix) 75 Mg Tablet, 75 MG PO DAILY, (Reported) Entered as Reported by: MAGGIE CARNEY on 09/22/20 1407 Diclofenac Sodium (Diclofenac Sodium) 100 Gm Gel..gram., 2 GM TP TID PRN for PAIN-BREAKTHROUGH, (Reported) Entered as Reported by: MAGGIE CARNEY on 09/22/20 1411 Folic Acid (Folic Acid) 0.8 Mg Capsule, 0.8 MG PO DAILY, (Reported) Entered as Reported by: MAGGIE CARNEY on 09/22/20 140 Gluc/Doe-MSM#2/C/D3/Toño/Born (Qjefiaedos-Iwkjbmisfrl-COK Tab) 1 Each Tablet, 1 EACH PO DAILY, (Reported) Entered as Reported by: MAGGIE CARNEY on 09/22/20 140 Hydrocodone Bit/Acetaminophen (HYDROcodone/APAP 10/325 TABLET) 1 Ea Tab, 1 EA PO Q6H PRN for PAIN SEVERE Prescribed by: OSEI SHERIDAN on 08/05/23 1347 Lisinopril (Lisinopril) 40 Mg Tablet, 40 MG PO DAILY, (Reported) Entered as Reported by: MAGGIE CARNEY on 09/22/20 140 Metformin HCl (Metformin HCl) 500 Mg Tablet, 500 MG PO BID, (Reported) Entered as Reported by: MAGGIE CARNEY on 09/22/20 140 Metoprolol Tartrate (Metoprolol Tartrate) 50 Mg Tablet, 25 MG PO BID, (Reported) Entered as Reported by: MAGGIE CARNEY on 09/22/201406 Review of Systems Review of Systems Constitutional: No chills, No fever Eyes: No Symptoms Reported Ears, Nose, Mouth, Throat: no symptoms reported Respiratory: no symptoms reported Cardiovascular: no symptoms reported Gastrointestinal: no symptoms reported Genitourinary: no symptoms reported Musculoskeletal: see HPI Skin: see HPI Psychiatric/Neurological: See HPI; Denies Numbness, Denies Paresthesia Past Zommoud-Anvwly-Upsbvg Hx Patient Social History Tobacco Use?: No Seasonal Allergies Seasonal Allergies: No Past Medical History Surgery/Hospitalization HX: COVID IN [place] Surgeries: Yes CABG, Orthopedic Respiratory: Yes Pulmonary Embolism Cardiac: Yes Coronary Artery Disease, Heart Attack, Hypertension Neurological: No Genitourinary: No Gastrointestinal: No Musculoskeletal: No Endocrine: Yes Diabetes, Non-Insulin dep Cancer: No Psychosocial: No Integumentary: No Physical Exam Vital Signs Vital Signs - First Documented 08/05/23 12:50 Temp 36.1 Pulse 87 Resp 16 B/P (MAP) 182/111 (134) Pulse Ox 95 O2 Delivery Room Air Capillary Refill : Height, Weight, BMI Height: 6'" Weight: 250lbs. oz. 113.083932us; 37.00 BMI Method:Stated General Appearance: WD/WN, no apparent distress Cardiovascular: normal peripheral pulses Extremities: normal range of motion, normal capillary refill, other (Tender to palpation on the medial inferior right knee as well as posteriorly. No crepitus or deformity noted.) Neurologic/Psychiatric: no motor/sensory deficits, alert, normal mood/affect, oriented x 3 Skin: normal color, warm/dry [place] Coma Score Best Eye Response: (4) Open Spontaneously Best Verbal Response: (5) Oriented Best Motor Response: (6) Obeys Commands [place] Total: 15 Progress/Results/Core Measures Results/Orders My Orders Orders - OSEI SHERIDAN MD Knee 3 View Right (08/05/23 13:03) Vital Signs/I&O 08/05/23 12:50 Temp 36.1 Pulse 87 Resp 16 B/P (MAP) 182/111 (134) Pulse Ox 95 O2 Delivery Room Air Progress Progress Note #1: Progress Note Differential diagnosis includes internal derangement of the knee, posterior cruciate ligament injury, medial collateral ligament injury, knee sprain, tibia fracture, fibula fracture, femur fracture. With patient continuing to complain of severe pain but having normal range of motion and will obtain x-rays of the right knee to look for acute bony abnormality. Advised that he likely would still need an MRI to look at the soft tissues. He was offered a Toradol shot to help with pain and inflammation while waiting on the x-rays and declined stating that he had already taken acetaminophen and ibuprofen at home. Progress Note #2: Time: 13:18 Progress Note On my personal interpretation and review of 3 views of right knee I did not appreciate any acute fracture or bony abnormality. Awaiting Radiology reading. 1333 Radiologist did not appreciate any acute fracture. Continue with brace and weight bearing as tolerated. Set up MRI or follow up with PCP/Ortho. For severe pain prescribe a few hydrocodone and advised he could still take anti- inflammatories as well. Diagnostic Imaging Diagonstic Imaging: Xray Plain Films/CT/US/NM/MRI: knee Comments NAME: TONA KING MED REC#: [id number] PT STATUS: REG ER : 1960 PHYSICIAN: OSEI SHERIDAN MD ADMIT DATE: 08/05/23/ER FS Draft Date of Exam:08/05/23 KNEE 3 VIEW RIGHT INDICATION: Knee pain COMPARISON: None available. TECHNIQUE: 3 radiographs of the right knee dated 08/05/2023. FINDINGS: No acute fracture or dislocation. No destructive osseous process. Moderate medial joint space narrowing. Lateral compartment is well maintained. Surgical clips are noted along the medial aspect of the right lower extremity. Mild background vascular calcifications. Chronic appearing fragmentation of the tibial tuberosity. Small superior patellar enthesophyte. No significant knee joint effusion. IMPRESSION: No acute osseous abnormality with mild degenerative changes. Background vascular calcifications, post surgical changes as above. Dictated on workstation # [id number] Dict: 08/05/23 1323 Trans: 08/05/23 1332 CVB [id number] Interpreted by: ISSAC GOODMAN MD Electronically signed by: Reviewed: Reviewed by Me Departure Impression Primary Impression: Right knee pain Qualified Codes: M25.561 - Pain in right knee Additional Impression: Strain of right knee and leg Qualified Codes: S86.911A - Strain of unspecified muscle(s) and tendon(s) at lower leg level, right leg, initial encounter Disposition: 01 HOME, SELF-CARE Condition: Stable Departure-Patient Inst. Decision time for Depature: 13:36 Referrals: IZZY ISLAS (PCP) Primary Care Physician NO,LOCAL PHYSICIAN (Family) Primary Care Physician Patient Instructions: Knee Brace ED, Opioids for Short-Term Treatment of Pain ED, Knee Pain ED Add. Discharge Instructions: Continue with knee brace and use crutches for weight bearing as tolerated. For severe pain may use the Hydrocodone/Acetaminophen. May still take anti- inflammatory such as Ibuprofen with the narcotic. [facility] as you may need [facility] or to see Orthopedics for continued pain. All discharge instructions reviewed with patient and/or family. Voiced understanding. Scripts Hydrocodone Bit/Acetaminophen (HYDROcodone/APAP 10/325 TABLET) 1 Ea Tab 1 EA PO Q6H PRN for PAIN SEVERE for 5 Days, #20 TAB 0 Refills 1/2 to 1 tab by mouth every 6 hours as needed for severe pain Prov: OSEI SHERIDAN MD 08/05/23 OSEI SHERIDAN MD Aug 05, 2023 13:17
--- NOTE | 2023-08-05 13:32 | Diagnostic Imaging Report ---
INDICATION: Knee pain COMPARISON: None available. TECHNIQUE: 3 radiographs of the right knee dated 08/05/2023. FINDINGS: No acute fracture or dislocation. No destructive osseous process. Moderate medial joint space narrowing. Lateral compartment is well maintained. Surgical clips are noted along the medial aspect of the right lower extremity. Mild background vascular calcifications. Chronic appearing fragmentation of the tibial tuberosity. Small superior patellar enthesophyte. No significant knee joint effusion. IMPRESSION: No acute osseous abnormality with mild degenerative changes. Background vascular calcifications, post surgical changes as above. Dictated by: Dictated on workstation # [id number]
[2023-08-05] MEDS ORDERED: ACHYD1T PO (13:46)
[2023-08-05 13:55] VITALS: BP 159/85
[2023-08-05] MEDS ORDERED: HYDR-3817 PO (14:03)
== END 2023-08-05 13:57 | disposition home or self-care (01) ==
LOC: EDUNIT# 12:49 → ER FS 12:50
DX: S86.911A Strain of unspecified muscle(s) and tendon(s) at lower leg level, right leg, initial encounter (principal); Z86.16 Personal history of COVID-19; W01.0XXA Fall on same level from slipping, tripping and stumbling without subsequent striking against object, initial encounter
CPT/HCPCS: 73562

== ENCOUNTER → 2023-08-19 | Outpatient (CLI) | payer OTHER ==
[~2023-08-19] MED LIST changes: +ACHYD1T PO; +HYDR-3817 PO
--- NOTE | 2023-08-19 11:36 | Diagnostic Imaging Report ---
INDICATION: Tripped and fell. Knee pain. EXAMINATION: Right knee MRI without contrast, 08/19/2023. COMPARISON: Correlation made to radiographs from 08/05/2023. FINDINGS: Multiplanar, multisequence MRI of the knee without contrast. Marked T2 hyperintensity is noted throughout the anterior tibial plateau extending into the visualized proximal metadiaphysis. This is most pronounced along the mid and lateral aspects of the tibial plateau with a vertical hypointense line on T1-weighted imaging extending into the intercondylar aspect of the tibial plateau, intra-articular in nature. Findings are consistent with a nondisplaced intra-articular fracture. The remaining visualized osseous structures are unremarkable. The extensor mechanism is intact. Osseous fragments at the distal patellar tendon are likely due to prior history of Anjali-Schlatter disease. Edema along the inferior border, however, is noted, and an acute fracture associated with the tibial plateau abnormality is not excluded although felt to be less likely. The ACL and PCL are intact. The MCL is intact. The lateral collateral ligamentous complex is intact. There is a multidirectional degenerative type tear involving the posterior horn of the medial meniscus. This extends into the meniscal body. There is myxoid degeneration throughout the lateral meniscus. There is mild loss of cartilage in the lateral compartment with moderate loss of cartilage medially. Mild fissuring of the cartilage over the patella is noted. There is a small joint effusion. There is a small Farmer's cyst. Edema within the subcutaneous tiny soft tissues of the anterior knee and extending into the musculature about the proximal tibia is reactive in nature. IMPRESSION: 1. Nondisplaced, nondepressed intra-articular fracture of the proximal tibia. Surrounding reactive edema noted. Involvement of the osseous fragments at the tibial tuberosity not excluded but felt to be unlikely. 2. Ligaments and tendons intact. 3. Tears of the medial meniscus as described with myxoid degeneration in the lateral meniscus. 4. Degenerative findings as noted above. Dictated by: Dictated on workstation # [id number]
== END ==
LOC: RAD 08:47
PROVIDERS: ATTEND Family Medicine
DX: Z01.89 Encounter for other specified special examinations (principal); S82.101A Unspecified fracture of upper end of right tibia, initial encounter for closed fracture; S83.241A Other tear of medial meniscus, current injury, right knee, initial encounter; M17.11 Unilateral primary osteoarthritis, right knee
CPT/HCPCS: 73721